=== PATIENT | male | born 1970 | race Caucasian/White ===

== ENCOUNTER → 2020-01-25 08:49 | Outpatient (CLI) | payer OTHER, SELFPAY ==
--- NOTE | 2020-01-25 | DI.MRI.S_ITS ---
PROCEDURE: MR HEAD/BRAIN WO CON INDICATIONS: Migraine without aura, intractable, without status TECHNIQUE: Noncontrast axial T1 spin echo, axial T2 fast spin echo, sagittal and axial FLAIR, coronal T2 fast spin echo, axial gradient echo, axial diffusion and ADC through the brain. COMPARISON: None. FINDINGS: Image quality: Excellent. CSF Spaces: Basal cisterns are patent. No extra-axial fluid collections. Ventricles are normal in size and shape. Brain: No intracranial masses or hemorrhage. Gates/white matter interface is normal. Brainstem appears normal. Diffusion-weighted images demonstrate no acute ischemic insult. No chronic ischemic insults. Normal intravascular flow voids are present. Skull and face: Calvarium has normal marrow signal. Orbits appear normal. Sinuses: Sinuses and mastoids are clear. IMPRESSION: Negative brain MRI. No evidence of acute stroke, hemorrhage, or mass. Normal appearance of brain parenchyma. Dictated by: Humberto Johnston M.D. on 01/26/2020 at 13:22 Approved by: Humberto Johnston M.D. on 01/26/2020 at 13:24
== END ==
PROVIDERS: PCP Student in an Organized Health Care Education/Training Program; Referring Provider Psychiatry & Neurology Neurology; Visit Provider Psychiatry & Neurology Neurology
DX: G43.019 Migraine without aura, intractable, without status migrainosus (principal)
CPT/HCPCS: 70551

== ENCOUNTER → 2021-09-17 14:22 | Outpatient (CLI) | payer BC, SELFPAY ==
[2021-09-20 12:36] LABS: Fecal Immunochemical Test Negative (Negative)
== END ==
PROVIDERS: PCP Student in an Organized Health Care Education/Training Program; Referring Provider Student in an Organized Health Care Education/Training Program; Visit Provider Student in an Organized Health Care Education/Training Program
DX: Z12.11 Encounter for screening for malignant neoplasm of colon (principal)
CPT/HCPCS: 82274

== ENCOUNTER 2022-04-29 16:52 | Emergency (ER) | payer BC, SELFPAY ==
[2022-04-29] VITALS (8 sets, daily range): BP systolic 124–157; BP diastolic 82–94; PULSE 71–87; RESP 17; TEMP 36.6; O2SAT 97–100; BMI 23.6
--- NOTE | 2022-04-29 18:55 | ED_ITS ---
HPI - Headache <Diego Engel PA-C - Last Filed: 04/29/22 20:27> General Chief Complaint: Headache Stated Complaint: Headache since 6am Time Seen by Provider: 04/29/22 18:40 Mode of arrival: Ambulatory History of Present Illness HPI Narrative: Patient is a 51-year-old male who presents emergency room today with complaint migraine headache that started this morning about 6:00 a.m.. States he woke up this morning noted that he had a migraine headache. States he took his nortriptyline that he usually takes 20 of a migraine headache and it did relieve it. Also states that he retook nortriptyline around 2:00 p.m. and also did not relieve the headache. Also also states he took tramadol at 6:00 a.m. and 2:00 p.m. do not resolve the headache. States he had about vomiting about 230 and took Zofran to help the vomiting but still had the headache. Describes the headache as a pressure behind head that goes from the back of the head to the front of the head feels is worse with movement and better with not moving. States she has seen neurologist Dr. Sosa for his migraines but not contact him today. She has had migraines before but just not this bad. Also has arthritis and took Celebrex for that this morning. Denies associated neck pain. Related Data Home Medications Medication Instructions Recorded Confirmed celecoxib 200 mg capsule (Celebrex) 200 mg PO [facility] #30 caps 02/26/16 04/29/22 tramadol 50 mg tablet 50 mg PO Q6HP PRN Headache ##0 10/18/16 04/29/22 adalimumab 40 mg/0.8 mL 40 mg SUBCUT Q14D 08/13/18 04/29/22 subcutaneous syringe kit (Humira) amitriptyline 10 mg tablet 10 mg PO BEDTIME 02/28/22 04/29/22 azathioprine 100 mg tablet 100 mg PO DAILY 02/28/22 04/29/22 Previous Rx's Medication Instructions Recorded sildenafil (pulm.hypertension) 20 20 - 100 mg PO BEDTIME PRN sexual 07/16/20 mg tablet activity #30 tabs naratriptan 2.5 mg tablet See Rx Instructions PO .COMPLEX 02/04/22 #18 tabs Allergies Allergy/AdvReac Type Severity Reaction Status Date / Time No Known Drug Allergies Allergy Verified 04/29/22 18:57 Review of Systems <Diego Engel PA-C - Last Filed: 04/29/22 20:27> Review of Systems Narrative: R.O.S.: General: No fever, chills or fatigue. Cardiovascular: No chest pain or palpitations Respiratory: No S.O.B. HEENT: No congestion, ear pain, rhinorrhea, sore throat or tinnitus Gastrointestinal: No nausea or vomiting : No urinary concerns Skin: No rash or associated abnormalities Musculoskeletal: No pain in muscles or joints, no limitation of range of motion, no paresthesia or numbness. ?? Neurological: Awake, alert and in and in moderate distress with headache. Denies neck pain Patient History <Diego Engel PA-C - Last Filed: 04/29/22 20:27> Medical History (Updated 04/29/22 @ 21:00 by Jovanni Frances DO) Psoriasis Surgical History (Updated 11/28/17 @ 05:55 by Conversion Provider) Status post laparoscopic cholecystectomy (10/26/10) Family History Grandfather No problems noted. Grandmother No problems noted. Grandfather No problems noted. Social History Smoking Status: Former smoker Smoking Status: Former smoker alcohol intake frequency: other Substance Use Type: does not use Exam <Diego Engel PA-C - Last Filed: 04/29/22 20:27> Narrative Exam Narrative: Physical Exam: ? General: Awake alert but lying in bed with his eyes closed. The patient is an acute moderate distress.. ? Head: Normocephalic, no lesions. Chest: Lungs CTAB, no rales, rhonchi or wheezes. ?? Heart: RRR, no murmurs, rubs or gallops. Eyes: PERRLA, EOM's full, conjunctivae clear. ? Neuro: Physiological, no localizing findings, CN3-12 intact. ?? Extremities: Warm, well perfused, FROM, no deformities, no edema. ?? Skin: Normal, no rashes, no lesions noted. ?? PSYCHIATRIC: The mood is good, no blunted affect. Speech is clear. Thought process is linear, thought content is appropriate. The voice is without significant inflection. Gastrointestinal: Soft; NT; ND; Pos BS with Neg. rebound tenderness. No scars or major deformities noted on Visual Inspection. Initial Vital Signs Initial Vital Signs: Vital Signs Temperature 98 F 04/29/22 16:57 Pulse Rate 75 04/29/22 16:57 Respiratory Rate 17 04/29/22 16:57 Blood Pressure 135/94 H 04/29/22 16:57 Pulse Oximetry 99 04/29/22 16:57 Oxygen Delivery Method 04/29/22 16:57 <Jovanni Frances DO - Last Filed: 04/30/22 02:04> Initial Vital Signs Initial Vital Signs: Vital Signs Temperature 98 F 04/29/22 16:57 Pulse Rate 75 04/29/22 16:57 Respiratory Rate 17 04/29/22 16:57 Blood Pressure 135/94 H 04/29/22 16:57 Pulse Oximetry 99 04/29/22 16:57 Oxygen Delivery Method 04/29/22 16:57 Course <Diego Engel PA-C - Last Filed: 04/29/22 20:27> Orders Ordered: Discontinued Medications Diphenhydramine HCl (Diphenhydramine 50 Mg/Ml Vial) 25 mg IV NOW ONE Stop: 04/29/22 19:08 Last Admin: 04/29/22 19:15 Dose: 25 mg Documented By: KENYON Haloperidol (Haloperidol 5 Mg/Ml Vial) 2 mg IV Q1H PRN PRN Reason: Agitation Last Admin: 04/29/22 20:17 Dose: 2 mg Documented By: KENYON Ketorolac Tromethamine (Ketorolac 30 Mg/Ml Vial) 30 mg IM NOW ONE Stop: 04/29/22 18:56 Last Admin: 04/29/22 19:26 Dose: Not Given Documented By: KENYON Ketorolac Tromethamine (Ketorolac 30 Mg/Ml Vial) 30 mg IV NOW ONE Stop: 04/29/22 18:59 Last Admin: 04/29/22 18:59 Dose: 30 mg Documented By: MATEO Metoclopramide HCl (Metoclopramide 10 Mg/2 Ml Inj) 10 mg IV NOW ONE Stop: 04/29/22 19:09 Last Admin: 04/29/22 19:15 Dose: 10 mg Documented By: KENYON Vital Signs Vital signs: Vital Signs - 8 hr 04/29/22 19:03 04/29/22 19:04 04/29/22 19:04 Pulse Rate 78 74 Blood Pressure 149/94 H Pulse Oximetry 100 100 04/29/22 19:20 04/29/22 19:20 04/29/22 19:30 Pulse Rate 72 Blood Pressure 157/92 H 151/92 H Pulse Oximetry 99 04/29/22 19:30 04/29/22 20:00 04/29/22 20:00 Pulse Rate 77 71 Blood Pressure 124/85 Pulse Oximetry 100 99 04/29/22 20:30 04/29/22 20:30 04/29/22 21:00 Pulse Rate 87 Blood Pressure 130/84 148/82 H Pulse Oximetry 100 04/29/22 21:00 Pulse Rate 84 Blood Pressure Pulse Oximetry 97 <Jovanni Frances DO - Last Filed: 04/30/22 02:04> Orders Ordered: Discontinued Medications Diphenhydramine HCl (Diphenhydramine 50 Mg/Ml Vial) 25 mg IV NOW ONE Stop: 04/29/22 19:08 Last Admin: 04/29/22 19:15 Dose: 25 mg Documented By: KENYON Haloperidol (Haloperidol 5 Mg/Ml Vial) 2 mg IV Q1H PRN PRN Reason: Agitation Last Admin: 04/29/22 20:17 Dose: 2 mg Documented By: KENYON Ketorolac Tromethamine (Ketorolac 30 Mg/Ml Vial) 30 mg IM NOW ONE Stop: 04/29/22 18:56 Last Admin: 04/29/22 19:26 Dose: Not Given Documented By: KENYON Ketorolac Tromethamine (Ketorolac 30 Mg/Ml Vial) 30 mg IV NOW ONE Stop: 04/29/22 18:59 Last Admin: 04/29/22 18:59 Dose: 30 mg Documented By: MATEO Metoclopramide HCl (Metoclopramide 10 Mg/2 Ml Inj) 10 mg IV NOW ONE Stop: 04/29/22 19:09 Last Admin: 04/29/22 19:15 Dose: 10 mg Documented By: KENYON Vital Signs Vital signs: Vital Signs - 8 hr 04/29/22 19:03 04/29/22 19:04 04/29/22 19:04 Pulse Rate 78 74 Blood Pressure 149/94 H Pulse Oximetry 100 100 04/29/22 19:20 04/29/22 19:20 04/29/22 19:30 Pulse Rate 72 Blood Pressure 157/92 H 151/92 H Pulse Oximetry 99 04/29/22 19:30 04/29/22 20:00 04/29/22 20:00 Pulse Rate 77 71 Blood Pressure 124/85 Pulse Oximetry 100 99 04/29/22 20:30 04/29/22 20:30 04/29/22 21:00 Pulse Rate 87 Blood Pressure 130/84 148/82 H Pulse Oximetry 100 04/29/22 21:00 Pulse Rate 84 Blood Pressure Pulse Oximetry 97 [facility] - Headache <Diego Engel PA-C - Last Filed: 04/29/22 20:27> [facility] Narrative Medical decision making narrative: Patient is a 51-year-old male presents to the emergency room today with complaint of migraine headache that started this morning. Is not new to the patient as he has had migraines before just not as bad. Denies any neck pain or meningeal signs. Has taken nortriptyline and tramadol do not believe headaches. Toradol Benadryl and Reglan initially ordered. About 45 minute patient states that the migraine is still the same. And then ordered 2.0 mg of Haldol. Care of this patient transferred to . <Jovanni Frances DO - Last Filed: 04/30/22 02:04> [facility] Narrative Medical decision making narrative: Patient is a 51-year-old male presents to the emergency room today with complaint of migraine headache that started this morning. Is not new to the patient as he has had migraines before just not as bad. Denies any neck pain or meningeal signs. Has taken nortriptyline and tramadol do not believe headaches. Toradol Benadryl and Reglan initially ordered. About 45 minute patient states that the migraine is still the same. And then ordered 2.0 mg of Haldol. Care of this patient transferred to . Received turned over. Review patient's history and physical exam. Performed my own independent evaluation. Patient states that his headache is much improved after the above-stated therapies. I do have low suspicion for intracranial hemorrhage given his presentation in his exam. Patient states he feels comfortable going home. He was given return precautions. He expressed understanding and agreement. Discharge Plan Departure Patient Disposition: Home Clinical Impression: Migraine Instructions: DI for Migraine Activity Restrictions/Additional Instructions: Can take all of your medications as directed. Contact your primary doctor for a follow-up. Return to the emergency department for any worsening symptoms. Prescriptions: No Action adalimumab [Humira] 40 mg/0.8 mL syringe kit 40 mg SUBCUT Q14D celecoxib [Celebrex] 200 MG capsule 200 mg PO [facility] Qty: 30 tramadol 50 MG tablet 50 mg PO Q6HP PRN (Reason: Headache) Qty: 0 naratriptan 2.5 mg tablet See Rx Instructions PO .COMPLEX Qty: 18 5RF Rx Instructions: take 1 tab at onset of headache; if no relief may repeat 1 tab in 4hr; max = 2 tabs/24 hrs PO amitriptyline 10 mg tablet 10 mg PO BEDTIME azathioprine 100 mg tablet 100 mg PO DAILY sildenafil (pulm.hypertension) 20 mg tablet 20 - 100 mg PO BEDTIME PRN (Reason: sexual activity) Qty: 30 11RF Referrals: Riley Isaac MD [Primary Care Provider] - Visit Report Forms: Patient Portal/API
[2022-04-29] MEDS: KETOROLAC 30 MG/ML VIAL IV (18:59)
[2022-04-29] MEDS: diphenhydrAMINE 50 MG/ML VIAL 25 MG IV (19:15)
[2022-04-29] MEDS: METOCLOPRAMIDE 10 MG/2 ML INJ IV (19:15)
[2022-04-29] MEDS: HALOPERIDOL 5 MG/ML VIAL 2 MG IV (20:17)
== END 2022-04-29 21:06 | disposition home or self-care (01) ==
PROVIDERS: Emergency Provider Physician Assistant; Family Provider Student in an Organized Health Care Education/Training Program; PCP Student in an Organized Health Care Education/Training Program
DX: G43.909 Migraine, unspecified, not intractable, without status migrainosus (principal); R11.2 Nausea with vomiting, unspecified
CPT/HCPCS: 36415; 96374; 96375; 99284; J1200; J1630; J1885; J2765

== ENCOUNTER 2022-08-10 13:45 | Outpatient (RCR) | payer BC, SELFPAY ==
--- NOTE | 2022-04-11 17:57 | PT.OIE ---
Current Diagnoses Pain in left shoulder (04/11/22) Stiffness of left shoulder, not elsewhere classified (04/11/22) Strain of muscle(s) and tendon(s) of the rotator cuff of left shoulder, subsequent encounter (04/11/22) Past Medical History (Last Updated 10/18/18 @ 21:27 by Sugey Lua) Psoriasis Past Surgical History Status post laparoscopic cholecystectomy (10/26/10) Visit Care Team Role Provider Type Riley Isaac MD Attending Provider Physician Family Provider Primary Care Provider Referring Provider Specialty: Internal Medicine Address: [address] [place] [address], [address], [facility] Email: [email or web address] Physical Therapy Initial Evaluation PT-OP-A Visit Information Start: 04/11/22 15:53 Freq: Status: Active Protocol: Document 04/11/22 15:15 DCW (Rec: 04/11/22 15:58 DCW [id number]) Out-Patient Physical Therapy Visit Information Visit Information Visit Type Initial Evaluation Visit Start Time 15:15 Visit Stop Time 15:50 Total Visit Minutes 35 Visit Number 1 Number of 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 Pt notes an insidious onset, it just started aching and hurting. Notes the thing that bothers it the most is reaching into the cupboard for dishes. Anything overhead typically irritates his shoulder. It is best if he just rests it. PT-OP-C Subjective Start: 04/11/22 15:53 Freq: Status: Active Protocol: Document 04/11/22 15:15 DCW (Rec: 04/11/22 15:58 DCW [id number]) OP-PT Subjective Patient Comments Patient Comments The only thing that helps it really is keeping my hand in my pocket. Just not using it. Patient Questionnaires Quick Dash- Upper Extremity Quick Dash UE Score 65.91% Quick Dash UE Impairment 60 to 79% Impaired (Score 60- 79) OP-PT Pain Assessment Pain Assessment Grid Paper Pain Assessment Grid Completed Yes Location Left Lateral Shoulder Intensity 4 Scale Used Numeric (0 - 10) Pain Aggravating Factors Activity Other Pain Aggravating Factors Reaching into cupboard for dishes PT-OP-E Functional Tests Start: 04/11/22 15:53 Freq: Status: Active Protocol: Document 04/11/22 15:15 DCW (Rec: 04/11/22 17:44 DCW [id number]) Functional Tests Apley's Scratch Test Action 1- Left Anterior opposite shoulder Action 1- Right Posterior opposite shoulder Action 2- Left C5 Action 2- Right T5 Action 3- Left L PSIS Action 3- Right T3 PT-OP-F Manual Assessment Start: 04/11/22 15:53 Freq: Status: Active Protocol: Document 04/11/22 15:15 DCW (Rec: 04/11/22 17:44 DCW [id number]) Manual Assessments Soft Tissue Assessment Soft Tissue Mobility Assessment Tenderness with palpation 3/4: wincing and withdraw aldong left supraspinatus, infraspinatus, and subscapularis. Appears to have a void in soft tissue, potentially due to muscle atrophy, just posteriomedially to location of L posterior deltoid PT-OP-K Range of Motion Start: 04/11/22 15:53 Freq: Status: Active Protocol: Document 04/11/22 15:15 DCW (Rec: 04/11/22 17:44 DCW [id number]) Shoulder Goniometric Range of Motion Shoulder Left Passive Shoulder ROM WFL No Testing Position Supine Flexion 110 Abduction 45 Comments Empty end feel, stopped when pt reported pain Left Active Shoulder ROM WFL No Testing Position Sitting Flexion 112 Abduction 90 External Rotation at 0 degrees Abduction 65 Shoulder ROM Limitations Shoulder ROM Limitations Soft Tissue Tightness,Muscle Weakness,Pain PT-OP-L Special Tests Start: 04/11/22 15:53 Freq: Status: Active Protocol: Document 04/11/22 15:15 DCW (Rec: 04/11/22 17:44 DCW [id number]) Special Tests Shoulder Special Tests Painful Arc Test Results Positive L Passive ER Rotator Cuff Test Results Positive L Lift-Off Rotator Cuff Test Results Unable to position L arm Foster Min Impingement Test Results Positive L Grind Labrum Test Results Negative Drop Arm Rotator Cuff Test Results Positive L Belly Press Test Results Negative Apprehension Test Test Results Positive L PT-OP-M Strength Start: 04/11/22 15:53 Freq: Status: Active Protocol: Document 04/11/22 15:15 DCW (Rec: 04/11/22 17:44 DCW [id number]) Shoulder Strength Shoulder Manual Muscle Testing Left Flexion 3- Fair- Abduction (C5) 3- Fair- External Rotation 4 Good Internal Rotation 3 Fair Comments Pain with resisted flexion, abduction, and ER PT-OP-Q Treatments Start: 04/11/22 15:53 Freq: Status: Active Protocol: Document 04/11/22 15:15 DCW (Rec: 04/11/22 16:00 DCW [id number]) Therapeutic Exercises Supine Exercises Serratus punch Supine Exercise Name Serratus punch Side bilateral Standing Exercises Extension Standing Exercise Name Shoulder extension Side bilateral Resistance Lv 2 Internal rotation Standing Exercise Name IR Side left Resistance Lv 2 External rotation Standing Exercise Name ER Side left Resistance Lv 2 Rows Standing Exercise Name Rows Side bilateral Resistance Lv 2 PT-OP-T Assessment and Plan Start: 04/11/22 15:53 Freq: Status: Active Protocol: Document 04/11/22 15:15 DCW (Rec: 04/11/22 17:56 DCW [id number]) Physical Therapy Assessment Rehab Potential Rehabilitation Potential Good Evaluation Complexity Number of Personal Factors/Comorbidities 1-2 Number of Body Systems Impaired 3 Clinical Presentation at Evaluation Unstable Impairments Impairments Functional Activities, Functional Mobility,Pain,ROM, Soft Tissue Mobility,Strength, Tone Goals Two Impairment Significantly limited L shoulder ROM Nursing Home 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 flexion and abduction to improve ability to take out and put away dishes overhead from his kitchen cupboard. LTG Duration 06/11/22 One Impairment Pt foes not have an appropriate home exercise program Short Term Goal (STG) Pt to be independent and compliant with an appropriate HEP STG Duration 05/11/22 Assessment Summary Assessment Pt presents with signs and symptoms consistent with referring diagnosis of left rotator cuff strain. Getting more specific is difficult at this time, as pt's special tests were largely all positive, making differential diagnosis between supraspinatus, infraspinatus, and subscap fairly difficult. Due to pt's noted location of most severe pain, which was along proximal posteriolateral left humerus, best estimation is supraspinatus, however multiple muscles may be affected. Pt also appears to have a void in his soft tissue in this general area, which may be a sign of muscle atrophy. ROM and strength significantly limited secondary to pain, PROM limited by empty end-feel in all planes. Pt may benefit from skilled therapy focusing on strengthening and ROM exercises for left shoulder to improve ROM and shoulder stability. If pt fails to progress as expected, may benefit from advanced imaging. Physical Therapy Plan Frequency and Duration Frequency of Treatment 2x/Week Duration of Treatment Two months Plan of Care Start Date 04/11/22 Plan of Care End Date 06/11/22 Therapeutic Interventions Therapeutic Interventions Aquatic Therapy,Home Exercise Program,Joint Mobilizations, Manual Therapy,Patient/ Caregiver Education,Self-Care/ Home Management,Soft Tissue Mobilization,Therapeutic Activities,Therapeutic Exercises Modalities Cold Pack/Ice Massage,Electric Stimulation,Hot Packs, Ultrasound Next Visit Focus/Plan Next Note Type Treatment Note Next Visit Plan Jacob strengthening, ROM, stretching
--- NOTE | 2022-04-11 17:58 | PT.OPPOC ---
Physical, Occupational & Speech Therapy At [facility] Current Diagnoses Pain in left shoulder (04/11/22) Stiffness of left shoulder, not elsewhere classified (04/11/22) Strain of muscle(s) and tendon(s) of the rotator cuff of left shoulder, subsequent encounter (04/11/22) Visit Care Team Role Provider Type Riley Isaac MD Attending Provider Physician Family Provider Primary Care Provider Referring Provider Specialty: Internal Medicine Address: [address] [place] [address], [address], [facility] Email: [email or web address] Plan Of Care PT-OP-T Assessment and Plan Start: 04/11/22 15:53 Freq: Status: Active Protocol: Document 04/11/22 15:15 DCW (Rec: 04/11/22 17:56 DCW [id number]) Physical Therapy Assessment Rehab Potential Rehabilitation Potential Good Evaluation Complexity Number of Personal Factors/Comorbidities 1-2 Number of Body Systems Impaired 3 Clinical Presentation at Evaluation Unstable Impairments Impairments Functional Activities, Functional Mobility,Pain,ROM, Soft Tissue Mobility,Strength, Tone Goals Two Impairment Significantly limited L shoulder ROM 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 flexion and abduction to improve ability to take out and put away dishes overhead from his kitchen cupboard. LTG Duration 06/11/22 One Impairment Pt foes not have an appropriate home exercise program Short Term Goal (STG) Pt to be independent and compliant with an appropriate HEP STG Duration 05/11/22 Assessment Summary Assessment Pt presents with signs and symptoms consistent with referring diagnosis of left rotator cuff strain. Getting more specific is difficult at this time, as pt's special tests were largely all positive, making differential diagnosis between supraspinatus, infraspinatus, and subscap fairly difficult. Due to pt's noted location of most severe pain, which was along proximal posteriolateral left humerus, best estimation is supraspinatus, however multiple muscles may be affected. Pt also appears to have a void in his soft tissue in this general area, which may be a sign of muscle atrophy. ROM and strength significantly limited secondary to pain, PROM limited by empty end-feel in all planes. Pt may benefit from skilled therapy focusing on strengthening and ROM exercises for left shoulder to improve ROM and shoulder stability. If pt fails to progress as expected, may benefit from advanced imaging. Physical Therapy Plan Frequency and Duration Frequency of Treatment 2x/Week Duration of Treatment Two months Plan of Care Start Date 04/11/22 Plan of Care End Date 06/11/22 Therapeutic Interventions Therapeutic Interventions Aquatic Therapy,Home Exercise Program,Joint Mobilizations, Manual Therapy,Patient/ Caregiver Education,Self-Care/ Home Management,Soft Tissue Mobilization,Therapeutic Activities,Therapeutic Exercises Modalities Cold Pack/Ice Massage,Electric Stimulation,Hot Packs, Ultrasound Next Visit Focus/Plan Next Note Type Treatment Note Next Visit Plan Sulder strengthening, ROM, stretching Plan of Care Dates Plan of Care Start Date 04/11/22 Plan of Care End Date 06/11/22 Electronically Signed by: Huy Caal, PT 04/11/22 0501 If you are in agreement with this Plan of Care, please return a signed and dated copy. I have reviewed this Plan of Care and certify that the skilled therapy services above are required to meet the patient?s needs. Physician Signature Date Printed Name and Credentials Clinical Instructor Signature Printed Name and Credentials
--- NOTE | 2022-04-13 16:43 | PT.OTN ---
Current Diagnoses Pain in left shoulder (04/13/22) Stiffness of left shoulder, not elsewhere classified (04/13/22) Strain of muscle(s) and tendon(s) of the rotator cuff of left shoulder, subsequent encounter (04/13/22) Physical Therapy Treatment Note PT-OP-A Visit Information Start: 04/11/22 15:53 Freq: Status: Active Protocol: Document 04/13/22 16:00 DCW (Rec: 04/13/22 16:43 DCW [id number]) Out-Patient Physical Therapy Visit Information Visit Information Visit Type Treatment Note Visit Start Time 16:00 Visit Stop Time 16:45 Total Visit Minutes 45 Visit Number 2 Number of CONTROL OFFICER MANAGER Visits 0 Evaluation Information Evaluation Date 04/11/22 PT-OP-B Current Condition Start: 04/11/22 15:53 Freq: Status: Active Protocol: Document 04/11/22 15:15 DCW (Rec: 04/11/22 17:44 DCW [id number]) Current Condition History of Current Condition Onset Date 2 month history Current Complaints Left shoulder pain and limited ROM History of Current Condition Pt is a 51 year old male presenting to skilled therapy due to a two month history of left shoulder pain. Pt notes an insidious onset, it just started aching and hurting. Notes the thing that bothers it the most is reaching into the cupboard for dishes. Anything overhead typically irritates his shoulder. It is best if he just rests it. PT-OP-C Subjective Start: 04/11/22 15:53 Freq: Status: Active Protocol: Document 04/13/22 16:00 DCW (Rec: 04/13/22 16:43 DCW [id number]) OP-PT Subjective Patient Comments Patient Comments Pt notes he had a migraine issue earlier today, but is doing somewhat better. PT-OP-E Functional Tests Start: 04/11/22 15:53 Freq: Status: Active Protocol: Document 04/11/22 15:15 DCW (Rec: 04/11/22 17:44 DCW [id number]) Functional Tests Apley's Scratch Test Action 1- Left Anterior opposite shoulder Action 1- Right Posterior opposite shoulder Action 2- Left C5 Action 2- Right T5 Action 3- Left L PSIS Action 3- Right T3 PT-OP-F Manual Assessment Start: 04/11/22 15:53 Freq: Status: Active Protocol: Document 04/11/22 15:15 DCW (Rec: 04/11/22 17:44 DCW [id number]) Manual Assessments Soft Tissue Assessment Soft Tissue Mobility Assessment Tenderness with palpation 3/4: wincing and withdraw aldong left supraspinatus, infraspinatus, and subscapularis. Appears to have a void in soft tissue, potentially due to muscle atrophy, just posteriomedially to location of L posterior deltoid PT-OP-K Range of Motion Start: 04/11/22 15:53 Freq: Status: Active Protocol: Document 04/11/22 15:15 DCW (Rec: 04/11/22 17:44 DCW [id number]) Shoulder Goniometric Range of Motion Shoulder Left Passive Shoulder ROM WFL No Testing Position Supine Flexion 110 Abduction 45 Comments Empty end feel, stopped when pt reported pain Left Active Shoulder ROM WFL No Testing Position Sitting Flexion 112 Abduction 90 External Rotation at 0 degrees Abduction 65 Shoulder ROM Limitations Shoulder ROM Limitations Soft Tissue Tightness,Muscle Weakness,Pain PT-OP-L Special Tests Start: 04/11/22 15:53 Freq: Status: Active Protocol: Document 04/11/22 15:15 DCW (Rec: 04/11/22 17:44 DCW [id number]) Special Tests Shoulder Special Tests Painful Arc Test Results Positive L Passive ER Rotator Cuff Test Results Positive L Lift-Off Rotator Cuff Test Results Unable to position L arm Foster Min Impingement Test Results Positive L Grind Labrum Test Results Negative Drop Arm Rotator Cuff Test Results Positive L Belly Press Test Results Negative Apprehension Test Test Results Positive L PT-OP-M Strength Start: 04/11/22 15:53 Freq: Status: Active Protocol: Document 04/11/22 15:15 DCW (Rec: 04/11/22 17:44 DCW [id number]) Shoulder Strength Shoulder Manual Muscle Testing Left Flexion 3- Fair- Abduction (C5) 3- Fair- External Rotation 4 Good Internal Rotation 3 Fair Comments Pain with resisted flexion, abduction, and ER PT-OP-Q Treatments Start: 04/11/22 15:53 Freq: Status: Active Protocol: Document 04/13/22 16:00 DCW (Rec: 04/13/22 16:43 DCW [id number]) Cardio Equipment Upper Body Ergometer (UBE) Duration (Minutes) 4 Seat Position 13 Height 2.5 Therapeutic Exercises Supine Exercises PROM Supine Exercise Name Shoulder flexion, ER /c PVC Side bilateral Sitting Exercises UT stretch Sitting Exercise Name Upper trap stretch Side left Reps/Minutes 30 PROM Sitting Exercise Name Lillie: GH flexion Side left Standing Exercises Wall walk Standing Exercise Name Finger walk up wall with end- range stretch Side left Manual Therapy Treatment Soft Tissue Mobilization R/C Body Location L R/C, main focus on supra/ infraspinatus Mobilization Type Sustained Pressure,Trigger Point Release Intensity/Depth Moderate Upper Trap Body Location L upper trap Mobilization Type Sustained Pressure,Trigger Point Release Intensity/Depth Superficial PT-OP-T Assessment and Plan Start: 04/11/22 15:53 Freq: Status: Active Protocol: Document 04/13/22 16:00 DCW (Rec: 04/13/22 16:43 DCW [id number]) Physical Therapy Assessment Impairments Impairments Functional Activities, Functional Mobility,Pain,ROM, Soft Tissue Mobility,Strength, Tone Goals Two Impairment Significantly limited L shoulder ROM Manager Spring 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 flexion and abduction to improve ability to take out and put away dishes overhead from his kitchen cupboard. LTG Duration 06/11/22 One Impairment Pt foes not have an appropriate home exercise program Short Term Goal (STG) Pt to be independent and compliant with an appropriate HEP STG Duration 05/11/22 Assessment Summary Assessment Pt continues to be fairly flared up/tender with all STM and with L shoulder movement in any plane. Pt agreeable to continued PROM at home, as well as addition of UT stretch to help reduce tone. Physical Therapy Plan Frequency and Duration Frequency of Treatment 2x/Week Duration of Treatment Two months Plan of Care Start Date 04/11/22 Plan of Care End Date 06/11/22 Therapeutic Interventions Therapeutic Interventions Aquatic Therapy,Home Exercise Program,Joint Mobilizations, Manual Therapy,Patient/ Caregiver Education,Self-Care/ Home Management,Soft Tissue Mobilization,Therapeutic Activities,Therapeutic Exercises Modalities Cold Pack/Ice Massage,Electric Stimulation,Hot Packs, Ultrasound Next Visit Focus/Plan Next Note Type Treatment Note Next Visit Plan Jacob strengthening, ROM, stretching
--- NOTE | 2022-04-18 16:46 | PT.OTN ---
Current Diagnoses Pain in left shoulder (04/18/22) Stiffness of left shoulder, not elsewhere classified (04/18/22) Strain of muscle(s) and tendon(s) of the rotator cuff of left shoulder, subsequent encounter (04/18/22) Physical Therapy Treatment Note PT-OP-A Visit Information Start: 04/11/22 15:53 Freq: Status: Active Protocol: Document 04/18/22 16:00 DCW (Rec: 04/18/22 16:46 DCW [id number]) Out-Patient Physical Therapy Visit Information Visit Information Visit Type Treatment Note Visit Start Time 16:00 Visit Stop Time 16:45 Total Visit Minutes 45 Visit Number 3 Number of REGIONAL MERCHANDISING MANAGER Visits 0 Evaluation Information Evaluation Date 04/11/22 PT-OP-B Current Condition Start: 04/11/22 15:53 Freq: Status: Active Protocol: Document 04/11/22 15:15 DCW (Rec: 04/11/22 17:44 DCW [id number]) Current Condition History of Current Condition Onset Date 2 month history Current Complaints Left shoulder pain and limited ROM History of Current Condition Pt is a 51 year old male presenting to skilled therapy due to a two month history of left shoulder pain. Pt notes an insidious onset, it just started aching and hurting. Notes the thing that bothers it the most is reaching into the cupboard for dishes. Anything overhead typically irritates his shoulder. It is best if he just rests it. PT-OP-C Subjective Start: 04/11/22 15:53 Freq: Status: Active Protocol: Document 04/18/22 16:00 DCW (Rec: 04/18/22 16:46 DCW [id number]) OP-PT Subjective Patient Comments Patient Comments Pt reports his shoulder is alright, tried to take it pretty easy over the weekend. PT-OP-E Functional Tests Start: 04/11/22 15:53 Freq: Status: Active Protocol: Document 04/11/22 15:15 DCW (Rec: 04/11/22 17:44 DCW [id number]) Functional Tests Apley's Scratch Test Action 1- Left Anterior opposite shoulder Action 1- Right Posterior opposite shoulder Action 2- Left C5 Action 2- Right T5 Action 3- Left L PSIS Action 3- Right T3 PT-OP-F Manual Assessment Start: 04/11/22 15:53 Freq: Status: Active Protocol: Document 04/11/22 15:15 DCW (Rec: 04/11/22 17:44 DCW [id number]) Manual Assessments Soft Tissue Assessment Soft Tissue Mobility Assessment Tenderness with palpation 3/4: wincing and withdraw aldong left supraspinatus, infraspinatus, and subscapularis. Appears to have a void in soft tissue, potentially due to muscle atrophy, just posteriomedially to location of L posterior deltoid PT-OP-K Range of Motion Start: 04/11/22 15:53 Freq: Status: Active Protocol: Document 04/11/22 15:15 DCW (Rec: 04/11/22 17:44 DCW [id number]) Shoulder Goniometric Range of Motion Shoulder Left Passive Shoulder ROM WFL No Testing Position Supine Flexion 110 Abduction 45 Comments Empty end feel, stopped when pt reported pain Left Active Shoulder ROM WFL No Testing Position Sitting Flexion 112 Abduction 90 External Rotation at 0 degrees Abduction 65 Shoulder ROM Limitations Shoulder ROM Limitations Soft Tissue Tightness,Muscle Weakness,Pain PT-OP-L Special Tests Start: 04/11/22 15:53 Freq: Status: Active Protocol: Document 04/11/22 15:15 DCW (Rec: 04/11/22 17:44 DCW [id number]) Special Tests Shoulder Special Tests Painful Arc Test Results Positive L Passive ER Rotator Cuff Test Results Positive L Lift-Off Rotator Cuff Test Results Unable to position L arm Foster Min Impingement Test Results Positive L Grind Labrum Test Results Negative Drop Arm Rotator Cuff Test Results Positive L Belly Press Test Results Negative Apprehension Test Test Results Positive L PT-OP-M Strength Start: 04/11/22 15:53 Freq: Status: Active Protocol: Document 04/11/22 15:15 DCW (Rec: 04/11/22 17:44 DCW [id number]) Shoulder Strength Shoulder Manual Muscle Testing Left Flexion 3- Fair- Abduction (C5) 3- Fair- External Rotation 4 Good Internal Rotation 3 Fair Comments Pain with resisted flexion, abduction, and ER PT-OP-Q Treatments Start: 04/11/22 15:53 Freq: Status: Active Protocol: Document 04/18/22 16:00 DCW (Rec: 04/18/22 16:46 DCW [id number]) Cardio Equipment Upper Body Ergometer (UBE) Duration (Minutes) 4 Seat Position 13 Height 2.5 Therapeutic Exercises Supine Exercises PROM Supine Exercise Name Shoulder flexion, ER /c PVC Side bilateral Sitting Exercises PROM Sitting Exercise Name Lillie: GH flexion Side left Standing Exercises Resisted side-stepping Standing Exercise Name Resisted UE side-stepping Resistance Yellow PROM Standing Exercise Name Shoulder PROM - Abduction Comments PVC Flexion Standing Exercise Name Shoulder flexion Side bilateral Resistance 2# Comments pain-free Abduction Standing Exercise Name Shoulder abduction Side bilateral Resistance 2# Comments pain-free Manual Therapy Treatment Soft Tissue Mobilization R/C Body Location L R/C, main focus on supra/ infraspinatus Mobilization Type Sustained Pressure,Trigger Point Release Intensity/Depth Moderate Upper Trap Body Location L upper trap Mobilization Type Sustained Pressure,Trigger Point Release Intensity/Depth Superficial PT-OP-T Assessment and Plan Start: 04/11/22 15:53 Freq: Status: Active Protocol: Document 04/18/22 16:00 DCW (Rec: 04/18/22 16:46 DCW [id number]) Physical Therapy Assessment Impairments Impairments Functional Activities, Functional Mobility,Pain,ROM, Soft Tissue Mobility,Strength, Tone Goals Two Impairment Significantly limited L shoulder ROM Custodial 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 flexion and abduction to improve ability to take out and put away dishes overhead from his kitchen cupboard. LTG Duration 06/11/22 One Impairment Pt foes not have an appropriate home exercise program Short Term Goal (STG) Pt to be independent and compliant with an appropriate HEP STG Duration 05/11/22 Assessment Summary Assessment Pt making some small improvements in PROM, but still experiencing overall pain with general movements. Physical Therapy Plan Frequency and Duration Frequency of Treatment 2x/Week Duration of Treatment Two months Plan of Care Start Date 04/11/22 Plan of Care End Date 06/11/22 Therapeutic Interventions Therapeutic Interventions Aquatic Therapy,Home Exercise Program,Joint Mobilizations, Manual Therapy,Patient/ Caregiver Education,Self-Care/ Home Management,Soft Tissue Mobilization,Therapeutic Activities,Therapeutic Exercises Modalities Cold Pack/Ice Massage,Electric Stimulation,Hot Packs, Ultrasound Next Visit Focus/Plan Next Note Type Treatment Note Next Visit Plan Shoulder strengthening, ROM, stretching
--- NOTE | 2022-04-20 16:47 | PT.OTN ---
Current Diagnoses Pain in left shoulder (04/20/22) Stiffness of left shoulder, not elsewhere classified (04/20/22) Strain of muscle(s) and tendon(s) of the rotator cuff of left shoulder, subsequent encounter (04/20/22) Physical Therapy Treatment Note PT-OP-A Visit Information Start: 04/11/22 15:53 Freq: Status: Active Protocol: Document 04/20/22 16:02 DCW (Rec: 04/20/22 16:47 DCW [id number]) Out-Patient Physical Therapy Visit Information Visit Information Visit Type Treatment Note Visit Start Time 16:02 Visit Stop Time 16:45 Total Visit Minutes 43 Visit Number 4 Number of COMPOUNDER Visits 0 Evaluation Information Evaluation Date 04/11/22 PT-OP-B Current Condition Start: 04/11/22 15:53 Freq: Status: Active Protocol: Document 04/11/22 15:15 DCW (Rec: 04/11/22 17:44 DCW [id number]) Current Condition History of Current Condition Onset Date 2 month history Current Complaints Left shoulder pain and limited ROM History of Current Condition Pt is a 51 year old male presenting to skilled therapy due to a two month history of left shoulder pain. Pt notes an insidious onset, it just started aching and hurting. Notes the thing that bothers it the most is reaching into the cupboard for dishes. Anything overhead typically irritates his shoulder. It is best if he just rests it. PT-OP-C Subjective Start: 04/11/22 15:53 Freq: Status: Active Protocol: Document 04/20/22 16:02 DCW (Rec: 04/20/22 16:47 DCW [id number]) OP-PT Subjective Patient Comments Patient Comments Pt reports that he feels ramirez today. PT-OP-E Functional Tests Start: 04/11/22 15:53 Freq: Status: Active Protocol: Document 04/11/22 15:15 DCW (Rec: 04/11/22 17:44 DCW [id number]) Functional Tests Leeey's Scratch Test Action 1- Left Anterior opposite shoulder Action 1- Right Posterior opposite shoulder Action 2- Left C5 Action 2- Right T5 Action 3- Left L PSIS Action 3- Right T3 PT-OP-F Manual Assessment Start: 04/11/22 15:53 Freq: Status: Active Protocol: Document 04/11/22 15:15 DCW (Rec: 04/11/22 17:44 DCW [id number]) Manual Assessments Soft Tissue Assessment Soft Tissue Mobility Assessment Tenderness with palpation 3/4: wincing and withdraw aldong left supraspinatus, infraspinatus, and subscapularis. Appears to have a void in soft tissue, potentially due to muscle atrophy, just posteriomedially to location of L posterior deltoid PT-OP-K Range of Motion Start: 04/11/22 15:53 Freq: Status: Active Protocol: Document 04/11/22 15:15 DCW (Rec: 04/11/22 17:44 DCW [id number]) Shoulder Goniometric Range of Motion Shoulder Left Passive Shoulder ROM WFL No Testing Position Supine Flexion 110 Abduction 45 Comments Empty end feel, stopped when pt reported pain Left Active Shoulder ROM WFL No Testing Position Sitting Flexion 112 Abduction 90 External Rotation at 0 degrees Abduction 65 Shoulder ROM Limitations Shoulder ROM Limitations Soft Tissue Tightness,Muscle Weakness,Pain PT-OP-L Special Tests Start: 04/11/22 15:53 Freq: Status: Active Protocol: Document 04/11/22 15:15 DCW (Rec: 04/11/22 17:44 DCW [id number]) Special Tests Shoulder Special Tests Painful Arc Test Results Positive L Passive ER Rotator Cuff Test Results Positive L Lift-Off Rotator Cuff Test Results Unable to position L arm Foster Min Impingement Test Results Positive L Grind Labrum Test Results Negative Drop Arm Rotator Cuff Test Results Positive L Belly Press Test Results Negative Apprehension Test Test Results Positive L PT-OP-M Strength Start: 04/11/22 15:53 Freq: Status: Active Protocol: Document 04/11/22 15:15 DCW (Rec: 04/11/22 17:44 DCW [id number]) Shoulder Strength Shoulder Manual Muscle Testing Left Flexion 3- Fair- Abduction (C5) 3- Fair- External Rotation 4 Good Internal Rotation 3 Fair Comments Pain with resisted flexion, abduction, and ER PT-OP-Q Treatments Start: 04/11/22 15:53 Freq: Status: Active Protocol: Document 04/20/22 16:02 DCW (Rec: 04/20/22 16:47 DCW [id number]) Cardio Equipment Upper Body Ergometer (UBE) Duration (Minutes) 4 Seat Position 14 Height 4 Gym Equipment Therapeutic Ball Antonio Exercise Details I's, Y's, and T's Ball Size/Color Green - 65 cm Body Position Prone Therapeutic Exercises Supine Exercises PROM Supine Exercise Name Shoulder flexion, ER /c PVC Side bilateral Sitting Exercises PROM Sitting Exercise Name Lillie: GH flexion Side left Standing Exercises Resisted side-stepping Standing Exercise Name Resisted UE side-stepping Resistance Yellow PROM Standing Exercise Name Shoulder AAROM - Abduction Comments PVC Internal rotation Standing Exercise Name PROM IR - Lillie Side left Manual Therapy Treatment Soft Tissue Mobilization R/C Body Location L R/C, main focus on supra/ infraspinatus Mobilization Type Sustained Pressure,Trigger Point Release Intensity/Depth Moderate Upper Trap Body Location L upper trap Mobilization Type Sustained Pressure,Trigger Point Release Intensity/Depth Superficial PT-OP-T Assessment and Plan Start: 04/11/22 15:53 Freq: Status: Active Protocol: Document 04/20/22 16:02 DCW (Rec: 04/20/22 16:47 DCW [id number]) Physical Therapy Assessment Impairments Impairments Functional Activities, Functional Mobility,Pain,ROM, Soft Tissue Mobility,Strength, Tone Goals Two Impairment Significantly limited L shoulder ROM Child Care Director 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 flexion and abduction to improve ability to take out and put away dishes overhead from his kitchen cupboard. LTG Duration 06/11/22 One Impairment Pt foes not have an appropriate home exercise program Short Term Goal (STG) Pt to be independent and compliant with an appropriate HEP STG Duration 05/11/22 Assessment Summary Assessment Pt did well with new exercises , prone Funmi's had noted decreased motion, but pt admitted that it was relatively pain-free, just didn't want to move. Physical Therapy Plan Frequency and Duration Frequency of Treatment 2x/Week Duration of Treatment Two months Plan of Care Start Date 04/11/22 Plan of Care End Date 06/11/22 Therapeutic Interventions Therapeutic Interventions Aquatic Therapy,Home Exercise Program,Joint Mobilizations, Manual Therapy,Patient/ Caregiver Education,Self-Care/ Home Management,Soft Tissue Mobilization,Therapeutic Activities,Therapeutic Exercises Modalities Cold Pack/Ice Massage,Electric Stimulation,Hot Packs, Ultrasound Next Visit Focus/Plan Next Note Type Treatment Note Next Visit Plan Shoulder strengthening, ROM, stretching
--- NOTE | 2022-04-25 16:48 | PT.OTN ---
Current Diagnoses Pain in left shoulder (04/25/22) Stiffness of left shoulder, not elsewhere classified (04/25/22) Strain of muscle(s) and tendon(s) of the rotator cuff of left shoulder, subsequent encounter (04/25/22) Physical Therapy Treatment Note PT-OP-A Visit Information Start: 04/11/22 15:53 Freq: Status: Active Protocol: Document 04/25/22 16:00 DCW (Rec: 04/25/22 16:48 DCW [id number]) Out-Patient Physical Therapy Visit Information Visit Information Visit Type Treatment Note Visit Start Time 16:00 Visit Stop Time 16:45 Total Visit Minutes 45 Visit Number 5 Number of CHANNEL DEVELOPMENT MANAGER Visits 0 Evaluation Information Evaluation Date 04/11/22 PT-OP-B Current Condition Start: 04/11/22 15:53 Freq: Status: Active Protocol: Document 04/11/22 15:15 DCW (Rec: 04/11/22 17:44 DCW [id number]) Current Condition History of Current Condition Onset Date 2 month history Current Complaints Left shoulder pain and limited ROM History of Current Condition Pt is a 51 year old male presenting to skilled therapy due to a two month history of left shoulder pain. Pt notes an insidious onset, it just started aching and hurting. Notes the thing that bothers it the most is reaching into the cupboard for dishes. Anything overhead typically irritates his shoulder. It is best if he just rests it. PT-OP-C Subjective Start: 04/11/22 15:53 Freq: Status: Active Protocol: Document 04/25/22 16:00 DCW (Rec: 04/25/22 16:48 DCW [id number]) OP-PT Subjective Patient Comments Patient Comments I think it might be getting better, but still notes significant limitations. PT-OP-E Functional Tests Start: 04/11/22 15:53 Freq: Status: Active Protocol: Document 04/11/22 15:15 DCW (Rec: 04/11/22 17:44 DCW [id number]) Functional Tests Apley's Scratch Test Action 1- Left Anterior opposite shoulder Action 1- Right Posterior opposite shoulder Action 2- Left C5 Action 2- Right T5 Action 3- Left L PSIS Action 3- Right T3 PT-OP-F Manual Assessment Start: 04/11/22 15:53 Freq: Status: Active Protocol: Document 04/11/22 15:15 DCW (Rec: 04/11/22 17:44 DCW [id number]) Manual Assessments Soft Tissue Assessment Soft Tissue Mobility Assessment Tenderness with palpation 3/4: wincing and withdraw aldong left supraspinatus, infraspinatus, and subscapularis. Appears to have a void in soft tissue, potentially due to muscle atrophy, just posteriomedially to location of L posterior deltoid PT-OP-K Range of Motion Start: 04/11/22 15:53 Freq: Status: Active Protocol: Document 04/11/22 15:15 DCW (Rec: 04/11/22 17:44 DCW [id number]) Shoulder Goniometric Range of Motion Shoulder Left Passive Shoulder ROM WFL No Testing Position Supine Flexion 110 Abduction 45 Comments Empty end feel, stopped when pt reported pain Left Active Shoulder ROM WFL No Testing Position Sitting Flexion 112 Abduction 90 External Rotation at 0 degrees Abduction 65 Shoulder ROM Limitations Shoulder ROM Limitations Soft Tissue Tightness,Muscle Weakness,Pain PT-OP-L Special Tests Start: 04/11/22 15:53 Freq: Status: Active Protocol: Document 04/11/22 15:15 DCW (Rec: 04/11/22 17:44 DCW [id number]) Special Tests Shoulder Special Tests Painful Arc Test Results Positive L Passive ER Rotator Cuff Test Results Positive L Lift-Off Rotator Cuff Test Results Unable to position L arm Foster Min Impingement Test Results Positive L Grind Labrum Test Results Negative Drop Arm Rotator Cuff Test Results Positive L Belly Press Test Results Negative Apprehension Test Test Results Positive L PT-OP-M Strength Start: 04/11/22 15:53 Freq: Status: Active Protocol: Document 04/11/22 15:15 DCW (Rec: 04/11/22 17:44 DCW [id number]) Shoulder Strength Shoulder Manual Muscle Testing Left Flexion 3- Fair- Abduction (C5) 3- Fair- External Rotation 4 Good Internal Rotation 3 Fair Comments Pain with resisted flexion, abduction, and ER PT-OP-Q Treatments Start: 04/11/22 15:53 Freq: Status: Active Protocol: Document 04/25/22 16:00 DCW (Rec: 04/25/22 16:48 DCW [id number]) Cardio Equipment Upper Body Ergometer (UBE) Duration (Minutes) 5 Seat Position 14 Height 4 Gym Equipment Therapeutic Ball Antonio Exercise Details I's, Y's, and T's Ball Size/Color Green - 65 cm Body Position Prone Therapeutic Exercises Supine Exercises PROM Supine Exercise Name Shoulder flexion, ER /c PVC Side bilateral Sitting Exercises PROM Sitting Exercise Name Lillie: GH flexion Side left Standing Exercises PROM Standing Exercise Name Shoulder AAROM - Abduction Comments PVC Internal rotation Standing Exercise Name PROM IR - Lillie Side left Manual Therapy Treatment Soft Tissue Mobilization R/C Body Location L R/C, main focus on supra/ infraspinatus Mobilization Type Sustained Pressure,Trigger Point Release Intensity/Depth Moderate Upper Trap Body Location L upper trap Mobilization Type Sustained Pressure,Trigger Point Release Intensity/Depth Superficial PT-OP-T Assessment and Plan Start: 04/11/22 15:53 Freq: Status: Active Protocol: Document 04/25/22 16:00 DCW (Rec: 04/25/22 16:48 DCW [id number]) Physical Therapy Assessment Impairments Impairments Functional Activities, Functional Mobility,Pain,ROM, Soft Tissue Mobility,Strength, Tone Goals Two Impairment Significantly limited L shoulder ROM Mcfp 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 flexion and abduction to improve ability to take out and put away dishes overhead from his kitchen cupboard. LTG Duration 06/11/22 One Impairment Pt foes not have an appropriate home exercise program Short Term Goal (STG) Pt to be independent and compliant with an appropriate HEP STG Duration 05/11/22 Assessment Summary Assessment Pt Still struggling significantly with AROM, if significant improvement not seen in next ~1 week, may need to refer back to PCP for potential imaging. Physical Therapy Plan Frequency and Duration Frequency of Treatment 2x/Week Plan of Care Start Date 04/11/22 Plan of Care End Date 06/11/22 Therapeutic Interventions Therapeutic Interventions Aquatic Therapy,Home Exercise Program,Joint Mobilizations, Manual Therapy,Patient/ Caregiver Education,Self-Care/ Home Management,Soft Tissue Mobilization,Therapeutic Activities,Therapeutic Exercises Modalities Cold Pack/Ice Massage,Electric Stimulation,Hot Packs, Ultrasound Next Visit Focus/Plan Next Note Type Treatment Note Next Visit Plan Shoulder strengthening, ROM, stretching
--- NOTE | 2022-04-27 17:33 | PT.OTN ---
Current Diagnoses Pain in left shoulder (04/27/22) Stiffness of left shoulder, not elsewhere classified (04/27/22) Strain of muscle(s) and tendon(s) of the rotator cuff of left shoulder, subsequent encounter (04/27/22) Physical Therapy Treatment Note PT-OP-A Visit Information Start: 04/11/22 15:53 Freq: Status: Active Protocol: Document 04/27/22 16:45 DCW (Rec: 04/27/22 17:33 DCW [id number]) Out-Patient Physical Therapy Visit Information Visit Information Visit Type Treatment Note Visit Start Time 16:45 Visit Stop Time 17:30 Total Visit Minutes 45 Visit Number 6 Number of INSPECTOR MISSILE Visits 0 Evaluation Information Evaluation Date 04/11/22 PT-OP-B Current Condition Start: 04/11/22 15:53 Freq: Status: Active Protocol: Document 04/11/22 15:15 DCW (Rec: 04/11/22 17:44 DCW [id number]) Current Condition History of Current Condition Onset Date 2 month history Current Complaints Left shoulder pain and limited ROM History of Current Condition Pt is a 51 year old male presenting to skilled therapy due to a two month history of left shoulder pain. Pt notes an insidious onset, it just started aching and hurting. Notes the thing that bothers it the most is reaching into the cupboard for dishes. Anything overhead typically irritates his shoulder. It is best if he just rests it. PT-OP-C Subjective Start: 04/11/22 15:53 Freq: Status: Active Protocol: Document 04/27/22 16:45 DCW (Rec: 04/27/22 17:33 DCW [id number]) OP-PT Subjective Patient Comments Patient Comments Pt notes there have not been any huge changes with his shoulder PT-OP-E Functional Tests Start: 04/11/22 15:53 Freq: Status: Active Protocol: Document 04/11/22 15:15 DCW (Rec: 04/11/22 17:44 DCW [id number]) Functional Tests Apley's Scratch Test Action 1- Left Anterior opposite shoulder Action 1- Right Posterior opposite shoulder Action 2- Left C5 Action 2- Right T5 Action 3- Left L PSIS Action 3- Right T3 PT-OP-F Manual Assessment Start: 04/11/22 15:53 Freq: Status: Active Protocol: Document 04/11/22 15:15 DCW (Rec: 04/11/22 17:44 DCW [id number]) Manual Assessments Soft Tissue Assessment Soft Tissue Mobility Assessment Tenderness with palpation 3/4: wincing and withdraw aldong left supraspinatus, infraspinatus, and subscapularis. Appears to have a void in soft tissue, potentially due to muscle atrophy, just posteriomedially to location of L posterior deltoid PT-OP-K Range of Motion Start: 04/11/22 15:53 Freq: Status: Active Protocol: Document 04/11/22 15:15 DCW (Rec: 04/11/22 17:44 DCW [id number]) Shoulder Goniometric Range of Motion Shoulder Left Passive Shoulder ROM WFL No Testing Position Supine Flexion 110 Abduction 45 Comments Empty end feel, stopped when pt reported pain Left Active Shoulder ROM WFL No Testing Position Sitting Flexion 112 Abduction 90 External Rotation at 0 degrees Abduction 65 Shoulder ROM Limitations Shoulder ROM Limitations Soft Tissue Tightness,Muscle Weakness,Pain PT-OP-L Special Tests Start: 04/11/22 15:53 Freq: Status: Active Protocol: Document 04/11/22 15:15 DCW (Rec: 04/11/22 17:44 DCW [id number]) Special Tests Shoulder Special Tests Painful Arc Test Results Positive L Passive ER Rotator Cuff Test Results Positive L Lift-Off Rotator Cuff Test Results Unable to position L arm Foster Min Impingement Test Results Positive L Grind Labrum Test Results Negative Drop Arm Rotator Cuff Test Results Positive L Belly Press Test Results Negative Apprehension Test Test Results Positive L PT-OP-M Strength Start: 04/11/22 15:53 Freq: Status: Active Protocol: Document 04/11/22 15:15 DCW (Rec: 04/11/22 17:44 DCW [id number]) Shoulder Strength Shoulder Manual Muscle Testing Left Flexion 3- Fair- Abduction (C5) 3- Fair- External Rotation 4 Good Internal Rotation 3 Fair Comments Pain with resisted flexion, abduction, and ER PT-OP-Q Treatments Start: 04/11/22 15:53 Freq: Status: Active Protocol: Document 04/27/22 16:45 DCW (Rec: 04/27/22 17:33 DCW [id number]) Cardio Equipment Upper Body Ergometer (UBE) Duration (Minutes) 5 Seat Position 14 Height 4 Gym Equipment Therapeutic Ball Funmis Exercise Details I's, Y's, and T's Ball Size/Color Green - 65 cm Body Position Prone Therapeutic Exercises Supine Exercises PROM Supine Exercise Name Shoulder flexion, ER /c PVC Side bilateral Sitting Exercises PROM Sitting Exercise Name Lillie: GH flexion Side left Standing Exercises Resisted side-stepping Standing Exercise Name Resisted UE side-stepping Resistance Yellow PROM Standing Exercise Name Shoulder AAROM - Abduction Comments PVC Internal rotation Standing Exercise Name PROM IR - Lillie Side left Manual Therapy Treatment Soft Tissue Mobilization R/C Body Location L R/C, main focus on supra/ infraspinatus Mobilization Type Sustained Pressure,Trigger Point Release Intensity/Depth Moderate Upper Trap Body Location L upper trap Mobilization Type Sustained Pressure,Trigger Point Release Intensity/Depth Superficial PT-OP-T Assessment and Plan Start: 04/11/22 15:53 Freq: Status: Active Protocol: Document 04/27/22 16:45 DCW (Rec: 04/27/22 17:33 DCW [id number]) Physical Therapy Assessment Impairments Impairments Functional Activities, Functional Mobility,Pain,ROM, Soft Tissue Mobility,Strength, Tone Goals Two Impairment Significantly limited L shoulder ROM Electrical Controls Engineer 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 flexion and abduction to improve ability to take out and put away dishes overhead from his kitchen cupboard. LTG Duration 06/11/22 One Impairment Pt foes not have an appropriate home exercise program Short Term Goal (STG) Pt to be independent and compliant with an appropriate HEP STG Duration 05/11/22 Assessment Summary Assessment Pt Still struggling significantly with AROM, if significant improvement not seen in next ~1 week, may need to refer back to PCP for potential imaging. Physical Therapy Plan Frequency and Duration Frequency of Treatment 2x/Week Plan of Care Start Date 04/11/22 Plan of Care End Date 06/11/22 Therapeutic Interventions Therapeutic Interventions Aquatic Therapy,Home Exercise Program,Joint Mobilizations, Manual Therapy,Patient/ Caregiver Education,Self-Care/ Home Management,Soft Tissue Mobilization,Therapeutic Activities,Therapeutic Exercises Modalities Cold Pack/Ice Massage,Electric Stimulation,Hot Packs, Ultrasound Next Visit Focus/Plan Next Note Type Treatment Note Next Visit Plan Shoulder strengthening, ROM, stretching
--- NOTE | 2022-05-02 16:44 | PT.OTN ---
Current Diagnoses Pain in left shoulder (05/02/22) Stiffness of left shoulder, not elsewhere classified (05/02/22) Strain of muscle(s) and tendon(s) of the rotator cuff of left shoulder, subsequent encounter (05/02/22) Physical Therapy Treatment Note PT-OP-A Visit Information Start: 04/11/22 15:53 Freq: Status: Active Protocol: Document 05/02/22 16:00 DCW (Rec: 05/02/22 16:44 DCW [id number]) Out-Patient Physical Therapy Visit Information Visit Information Visit Type Treatment Note Visit Start Time 16:00 Visit Stop Time 16:45 Total Visit Minutes 45 Visit Number 7 Number of CURING FINISHER Visits 0 Evaluation Information Evaluation Date 04/11/22 PT-OP-B Current Condition Start: 04/11/22 15:53 Freq: Status: Active Protocol: Document 04/11/22 15:15 DCW (Rec: 04/11/22 17:44 DCW [id number]) Current Condition History of Current Condition Onset Date 2 month history Current Complaints Left shoulder pain and limited ROM History of Current Condition Pt is a 51 year old male presenting to skilled therapy due to a two month history of left shoulder pain. Pt notes an insidious onset, it just started aching and hurting. Notes the thing that bothers it the most is reaching into the cupboard for dishes. Anything overhead typically irritates his shoulder. It is best if he just rests it. PT-OP-C Subjective Start: 04/11/22 15:53 Freq: Status: Active Protocol: Document 05/02/22 16:00 DCW (Rec: 05/02/22 16:44 DCW [id number]) OP-PT Subjective Patient Comments Patient Comments Shoulder has actually been reasonably okay, reports he is mostly able to reach up and grab things off the shelf. Admits that everything else seems to be going wrong, was in the ED with a migraine Monday. PT-OP-E Functional Tests Start: 04/11/22 15:53 Freq: Status: Active Protocol: Document 04/11/22 15:15 DCW (Rec: 04/11/22 17:44 DCW [id number]) Functional Tests Apley's Scratch Test Action 1- Left Anterior opposite shoulder Action 1- Right Posterior opposite shoulder Action 2- Left C5 Action 2- Right T5 Action 3- Left L PSIS Action 3- Right T3 PT-OP-F Manual Assessment Start: 04/11/22 15:53 Freq: Status: Active Protocol: Document 04/11/22 15:15 DCW (Rec: 04/11/22 17:44 DCW [id number]) Manual Assessments Soft Tissue Assessment Soft Tissue Mobility Assessment Tenderness with palpation 3/4: wincing and withdraw aldong left supraspinatus, infraspinatus, and subscapularis. Appears to have a void in soft tissue, potentially due to muscle atrophy, just posteriomedially to location of L posterior deltoid PT-OP-K Range of Motion Start: 04/11/22 15:53 Freq: Status: Active Protocol: Document 04/11/22 15:15 DCW (Rec: 04/11/22 17:44 DCW [id number]) Shoulder Goniometric Range of Motion Shoulder Left Passive Shoulder ROM WFL No Testing Position Supine Flexion 110 Abduction 45 Comments Empty end feel, stopped when pt reported pain Left Active Shoulder ROM WFL No Testing Position Sitting Flexion 112 Abduction 90 External Rotation at 0 degrees Abduction 65 Shoulder ROM Limitations Shoulder ROM Limitations Soft Tissue Tightness,Muscle Weakness,Pain PT-OP-L Special Tests Start: 04/11/22 15:53 Freq: Status: Active Protocol: Document 04/11/22 15:15 DCW (Rec: 04/11/22 17:44 DCW [id number]) Special Tests Shoulder Special Tests Painful Arc Test Results Positive L Passive ER Rotator Cuff Test Results Positive L Lift-Off Rotator Cuff Test Results Unable to position L arm Foster Min Impingement Test Results Positive L Grind Labrum Test Results Negative Drop Arm Rotator Cuff Test Results Positive L Belly Press Test Results Negative Apprehension Test Test Results Positive L PT-OP-M Strength Start: 04/11/22 15:53 Freq: Status: Active Protocol: Document 04/11/22 15:15 DCW (Rec: 04/11/22 17:44 DCW [id number]) Shoulder Strength Shoulder Manual Muscle Testing Left Flexion 3- Fair- Abduction (C5) 3- Fair- External Rotation 4 Good Internal Rotation 3 Fair Comments Pain with resisted flexion, abduction, and ER PT-OP-Q Treatments Start: 04/11/22 15:53 Freq: Status: Active Protocol: Document 05/02/22 16:00 DCW (Rec: 05/02/22 16:44 DCW [id number]) Cardio Equipment Upper Body Ergometer (UBE) Duration (Minutes) 5 Seat Position 14 Height 4 Gym Equipment Therapeutic Ball Antonio Exercise Details I's, Y's, and T's Ball Size/Color Green - 65 cm Body Position Prone Therapeutic Exercises Supine Exercises PROM Supine Exercise Name Shoulder flexion, ER /c PVC Side bilateral Sitting Exercises PROM Sitting Exercise Name Lillie: GH flexion Side left Standing Exercises Resisted side-stepping Standing Exercise Name Resisted UE side-stepping Resistance Red PROM Standing Exercise Name Shoulder AAROM - Abduction Comments PVC Internal rotation Standing Exercise Name PROM IR - Lillie Side left Manual Therapy Treatment Soft Tissue Mobilization R/C Body Location L R/C, main focus on supra/ infraspinatus Mobilization Type Sustained Pressure,Trigger Point Release Intensity/Depth Moderate Upper Trap Body Location L upper trap Mobilization Type Sustained Pressure,Trigger Point Release Intensity/Depth Superficial PT-OP-T Assessment and Plan Start: 04/11/22 15:53 Freq: Status: Active Protocol: Document 05/02/22 16:00 DC (Rec: 05/02/22 16:44 [facility] [id number]) Physical Therapy Assessment Impairments Impairments Functional Activities, Functional Mobility,Pain,ROM, Soft Tissue Mobility,Strength, Tone Goals Two Impairment Significantly limited L shoulder ROM Beautician Apprentice 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 flexion and abduction to improve ability to take out and put away dishes overhead from his kitchen cupboard. LTG Duration 06/11/22 One Impairment Pt foes not have an appropriate home exercise program Short Term Goal (STG) Pt to be independent and compliant with an appropriate HEP STG Duration 05/11/22 Assessment Summary Assessment Pt doing better today, improved PROM in all directions, less tenderness with STM. Still fairly limited in AROM. Physical Therapy Plan Frequency and Duration Frequency of Treatment 2x/Week Plan of Care Start Date 04/11/22 Plan of Care End Date 06/11/22 Therapeutic Interventions Therapeutic Interventions Aquatic Therapy,Home Exercise Program,Joint Mobilizations, Manual Therapy,Patient/ Caregiver Education,Self-Care/ Home Management,Soft Tissue Mobilization,Therapeutic Activities,Therapeutic Exercises Modalities Cold Pack/Ice Massage,Electric Stimulation,Hot Packs, Ultrasound Next Visit Focus/Plan Next Note Type Treatment Note Next Visit Plan Shoulder strengthening, ROM, stretching
--- NOTE | 2022-05-04 16:46 | PT.OTN ---
Current Diagnoses Pain in left shoulder (05/04/22) Stiffness of left shoulder, not elsewhere classified (05/04/22) Strain of muscle(s) and tendon(s) of the rotator cuff of left shoulder, subsequent encounter (05/04/22) Physical Therapy Treatment Note PT-OP-A Visit Information Start: 04/11/22 15:53 Freq: Status: Active Protocol: Document 05/04/22 16:00 DCW (Rec: 05/04/22 16:46 DCW [id number]) Out-Patient Physical Therapy Visit Information Visit Information Visit Type Treatment Note Visit Start Time 16:00 Visit Stop Time 16:45 Total Visit Minutes 45 Visit Number 8 Number of ROENTGENOLOGIST Visits 0 Evaluation Information Evaluation Date 04/11/22 PT-OP-B Current Condition Start: 04/11/22 15:53 Freq: Status: Active Protocol: Document 04/11/22 15:15 DCW (Rec: 04/11/22 17:44 DCW [id number]) Current Condition History of Current Condition Onset Date 2 month history Current Complaints Left shoulder pain and limited ROM History of Current Condition Pt is a 51 year old male presenting to skilled therapy due to a two month history of left shoulder pain. Pt notes an insidious onset, it just started aching and hurting. Notes the thing that bothers it the most is reaching into the cupboard for dishes. Anything overhead typically irritates his shoulder. It is best if he just rests it. PT-OP-C Subjective Start: 04/11/22 15:53 Freq: Status: Active Protocol: Document 05/04/22 16:00 DCW (Rec: 05/04/22 16:46 DCW [id number]) OP-PT Subjective Patient Comments Patient Comments Pt reports his shoulder is not horrible. PT-OP-E Functional Tests Start: 04/11/22 15:53 Freq: Status: Active Protocol: Document 04/11/22 15:15 DCW (Rec: 04/11/22 17:44 DCW [id number]) Functional Tests Apley's Scratch Test Action 1- Left Anterior opposite shoulder Action 1- Right Posterior opposite shoulder Action 2- Left C5 Action 2- Right T5 Action 3- Left L PSIS Action 3- Right T3 PT-OP-F Manual Assessment Start: 04/11/22 15:53 Freq: Status: Active Protocol: Document 04/11/22 15:15 DCW (Rec: 04/11/22 17:44 DCW [id number]) Manual Assessments Soft Tissue Assessment Soft Tissue Mobility Assessment Tenderness with palpation 3/4: wincing and withdraw aldong left supraspinatus, infraspinatus, and subscapularis. Appears to have a void in soft tissue, potentially due to muscle atrophy, just posteriomedially to location of L posterior deltoid PT-OP-K Range of Motion Start: 04/11/22 15:53 Freq: Status: Active Protocol: Document 04/11/22 15:15 DCW (Rec: 04/11/22 17:44 DCW [id number]) Shoulder Goniometric Range of Motion Shoulder Left Passive Shoulder ROM WFL No Testing Position Supine Flexion 110 Abduction 45 Comments Empty end feel, stopped when pt reported pain Left Active Shoulder ROM WFL No Testing Position Sitting Flexion 112 Abduction 90 External Rotation at 0 degrees Abduction 65 Shoulder ROM Limitations Shoulder ROM Limitations Soft Tissue Tightness,Muscle Weakness,Pain PT-OP-L Special Tests Start: 04/11/22 15:53 Freq: Status: Active Protocol: Document 04/11/22 15:15 DCW (Rec: 04/11/22 17:44 DCW [id number]) Special Tests Shoulder Special Tests Painful Arc Test Results Positive L Passive ER Rotator Cuff Test Results Positive L Lift-Off Rotator Cuff Test Results Unable to position L arm Foster Min Impingement Test Results Positive L Grind Labrum Test Results Negative Drop Arm Rotator Cuff Test Results Positive L Belly Press Test Results Negative Apprehension Test Test Results Positive L PT-OP-M Strength Start: 04/11/22 15:53 Freq: Status: Active Protocol: Document 04/11/22 15:15 DCW (Rec: 04/11/22 17:44 DCW [id number]) Shoulder Strength Shoulder Manual Muscle Testing Left Flexion 3- Fair- Abduction (C5) 3- Fair- External Rotation 4 Good Internal Rotation 3 Fair Comments Pain with resisted flexion, abduction, and ER PT-OP-Q Treatments Start: 04/11/22 15:53 Freq: Status: Active Protocol: Document 05/04/22 16:00 DCW (Rec: 05/04/22 16:46 DCW [id number]) Cardio Equipment Upper Body Ergometer (UBE) Duration (Minutes) 5 Seat Position 12 Height 3 Gym Equipment Therapeutic Ball Prone Walk-outs Exercise Details Prone Walk-out Ball Size/Color Green - 65 cm Body Position Prone Hughstons Exercise Details I's, Y's, and T's Ball Size/Color Green - 65 cm Body Position Prone Therapeutic Exercises Supine Exercises PROM Supine Exercise Name Shoulder flexion, ER /c PVC Side bilateral Sitting Exercises PROM Sitting Exercise Name Lillie: GH flexion Side left Standing Exercises Internal rotation Standing Exercise Name PROM IR - Lillie Side left Manual Therapy Treatment Soft Tissue Mobilization R/C Body Location L R/C, main focus on supra/ infraspinatus Mobilization Type Sustained Pressure,Trigger Point Release Intensity/Depth Moderate Upper Trap Body Location L upper trap Mobilization Type Sustained Pressure,Trigger Point Release Intensity/Depth Superficial PT-OP-T Assessment and Plan Start: 04/11/22 15:53 Freq: Status: Active Protocol: Document 05/04/22 16:00 DCW (Rec: 05/04/22 16:46 DCW [id number]) Physical Therapy Assessment Impairments Impairments Functional Activities, Functional Mobility,Pain,ROM, Soft Tissue Mobility,Strength, Tone Goals Two Impairment Significantly limited L shoulder ROM Mcc 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 flexion and abduction to improve ability to take out and put away dishes overhead from his kitchen cupboard. LTG Duration 06/11/22 One Impairment Pt foes not have an appropriate home exercise program Short Term Goal (STG) Pt to be independent and compliant with an appropriate HEP STG Duration 05/11/22 Assessment Summary Assessment Pt noted some increased discomfort with bearing weight through shoulder with new walk-out exercise, but showing some improvement with general ROM Physical Therapy Plan Frequency and Duration Frequency of Treatment 2x/Week Plan of Care Start Date 04/11/22 Plan of Care End Date 06/11/22 Therapeutic Interventions Therapeutic Interventions Aquatic Therapy,Home Exercise Program,Joint Mobilizations, Manual Therapy,Patient/ Caregiver Education,Self-Care/ Home Management,Soft Tissue Mobilization,Therapeutic Activities,Therapeutic Exercises Modalities Cold Pack/Ice Massage,Electric Stimulation,Hot Packs, Ultrasound Next Visit Focus/Plan Next Note Type Treatment Note Next Visit Plan Shoulder strengthening, ROM, stretching
--- NOTE | 2022-05-23 15:15 | PT.OTN ---
Current Diagnoses Pain in left shoulder (05/23/22) Stiffness of left shoulder, not elsewhere classified (05/23/22) Strain of muscle(s) and tendon(s) of the rotator cuff of left shoulder, subsequent encounter (05/23/22) Physical Therapy Treatment Note PT-OP-A Visit Information Start: 04/11/22 15:53 Freq: Status: Active Protocol: Document 05/23/22 14:32 DCW (Rec: 05/23/22 15:14 DCW [id number]) Out-Patient Physical Therapy Visit Information Visit Information Visit Type Treatment Note Visit Start Time 14:32 Visit Stop Time 15:15 Total Visit Minutes 43 Visit Number 9 Number of INSURANCE FOLLOW UP REPRESENTATIVE Visits 0 Evaluation Information Evaluation Date 04/11/22 PT-OP-B Current Condition Start: 04/11/22 15:53 Freq: Status: Active Protocol: Document 04/11/22 15:15 DCW (Rec: 04/11/22 17:44 DCW [id number]) Current Condition History of Current Condition Onset Date 2 month history Current Complaints Left shoulder pain and limited ROM History of Current Condition Pt is a 51 year old male presenting to skilled therapy due to a two month history of left shoulder pain. Pt notes an insidious onset, it just started aching and hurting. Notes the thing that bothers it the most is reaching into the cupboard for dishes. Anything overhead typically irritates his shoulder. It is best if he just rests it. PT-OP-C Subjective Start: 04/11/22 15:53 Freq: Status: Active Protocol: Document 05/23/22 14:32 DCW (Rec: 05/23/22 15:14 DCW [id number]) OP-PT Subjective Patient Comments Patient Comments Pt reports he spoke with the surgeon, agrees that it is improving but not where anyone is happy with it yet, so recommends just continuing with PT for now. PT-OP-E Functional Tests Start: 04/11/22 15:53 Freq: Status: Active Protocol: Document 04/11/22 15:15 DCW (Rec: 04/11/22 17:44 DCW [id number]) Functional Tests Apley's Scratch Test Action 1- Left Anterior opposite shoulder Action 1- Right Posterior opposite shoulder Action 2- Left C5 Action 2- Right T5 Action 3- Left L PSIS Action 3- Right T3 PT-OP-F Manual Assessment Start: 04/11/22 15:53 Freq: Status: Active Protocol: Document 04/11/22 15:15 DCW (Rec: 04/11/22 17:44 DCW [id number]) Manual Assessments Soft Tissue Assessment Soft Tissue Mobility Assessment Tenderness with palpation 3/4: wincing and withdraw aldong left supraspinatus, infraspinatus, and subscapularis. Appears to have a void in soft tissue, potentially due to muscle atrophy, just posteriomedially to location of L posterior deltoid PT-OP-K Range of Motion Start: 04/11/22 15:53 Freq: Status: Active Protocol: Document 04/11/22 15:15 DCW (Rec: 04/11/22 17:44 DCW [id number]) Shoulder Goniometric Range of Motion Shoulder Left Passive Shoulder ROM WFL No Testing Position Supine Flexion 110 Abduction 45 Comments Empty end feel, stopped when pt reported pain Left Active Shoulder ROM WFL No Testing Position Sitting Flexion 112 Abduction 90 External Rotation at 0 degrees Abduction 65 Shoulder ROM Limitations Shoulder ROM Limitations Soft Tissue Tightness,Muscle Weakness,Pain PT-OP-L Special Tests Start: 04/11/22 15:53 Freq: Status: Active Protocol: Document 04/11/22 15:15 DCW (Rec: 04/11/22 17:44 DCW [id number]) Special Tests Shoulder Special Tests Painful Arc Test Results Positive L Passive ER Rotator Cuff Test Results Positive L Lift-Off Rotator Cuff Test Results Unable to position L arm Foster Min Impingement Test Results Positive L Grind Labrum Test Results Negative Drop Arm Rotator Cuff Test Results Positive L Belly Press Test Results Negative Apprehension Test Test Results Positive L PT-OP-M Strength Start: 04/11/22 15:53 Freq: Status: Active Protocol: Document 04/11/22 15:15 DCW (Rec: 04/11/22 17:44 DCW [id number]) Shoulder Strength Shoulder Manual Muscle Testing Left Flexion 3- Fair- Abduction (C5) 3- Fair- External Rotation 4 Good Internal Rotation 3 Fair Comments Pain with resisted flexion, abduction, and ER PT-OP-Q Treatments Start: 04/11/22 15:53 Freq: Status: Active Protocol: Document 05/23/22 14:32 DCW (Rec: 05/23/22 15:14 DCW [id number]) Cardio Equipment Upper Body Ergometer (UBE) Duration (Minutes) 5 Seat Position 12 Height 3 Therapeutic Exercises Supine Exercises PROM Supine Exercise Name Shoulder flexion, abduction /c PVC Side bilateral Sitting Exercises PROM Sitting Exercise Name Lillie: GH flexion Side left Standing Exercises Serratus Wall Slide Standing Exercise Name Serratus Wall Slide Side bilateral Resistance Red Comments HEP Resisted side-stepping Standing Exercise Name Resisted UE side-stepping Resistance Red Internal rotation Standing Exercise Name PROM IR - Lillie Side left Manual Therapy Treatment Soft Tissue Mobilization R/C Body Location L R/C, main focus on supra/ infraspinatus Mobilization Type Sustained Pressure,Trigger Point Release Intensity/Depth Moderate Upper Trap Body Location L upper trap Mobilization Type Sustained Pressure,Trigger Point Release Intensity/Depth Superficial PT-OP-T Assessment and Plan Start: 04/11/22 15:53 Freq: Status: Active Protocol: Document 05/23/22 14:32 DCW (Rec: 05/23/22 15:14 DCW [id number]) Physical Therapy Assessment Impairments Impairments Functional Activities, Functional Mobility,Pain,ROM, Soft Tissue Mobility,Strength, Tone Goals Two Impairment Significantly limited L shoulder ROM Executive Account Manager 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 flexion and abduction to improve ability to take out and put away dishes overhead from his kitchen cupboard. LTG Duration 06/11/22 One Impairment Pt foes not have an appropriate home exercise program Short Term Goal (STG) Pt to be independent and compliant with an appropriate HEP STG Duration 05/11/22 Assessment Summary Assessment Pt did fairly well following an extended break from PT due to scheduling difficulties. Pt still limited by pain and stiffness at end-range ROM, very tender with palpation to parascapular musculature. Physical Therapy Plan Frequency and Duration Frequency of Treatment 2x/Week Plan of Care Start Date 04/11/22 Plan of Care End Date 06/11/22 Therapeutic Interventions Therapeutic Interventions Aquatic Therapy,Home Exercise Program,Joint Mobilizations, Manual Therapy,Patient/ Caregiver Education,Self-Care/ Home Management,Soft Tissue Mobilization,Therapeutic Activities,Therapeutic Exercises Modalities Cold Pack/Ice Massage,Electric Stimulation,Hot Packs, Ultrasound Next Visit Focus/Plan Next Note Type Treatment Note Next Visit Plan Shoulder strengthening, ROM, stretching
--- NOTE | 2022-05-31 16:01 | PT.OTN ---
Current Diagnoses Pain in left shoulder (05/31/22) Stiffness of left shoulder, not elsewhere classified (05/31/22) Strain of muscle(s) and tendon(s) of the rotator cuff of left shoulder, subsequent encounter (05/31/22) Physical Therapy Treatment Note PT-OP-A Visit Information Start: 04/11/22 15:53 Freq: Status: Active Protocol: Document 05/31/22 15:15 DCW (Rec: 05/31/22 16:00 DCW [id number]) Out-Patient Physical Therapy Visit Information Visit Information Visit Type Treatment Note Visit Start Time 15:15 Visit Stop Time 16:00 Total Visit Minutes 45 Visit Number 10 Number of DENTAL CHAIR ASSEMBLER Visits 0 Evaluation Information Evaluation Date 04/11/22 PT-OP-B Current Condition Start: 04/11/22 15:53 Freq: Status: Active Protocol: Document 04/11/22 15:15 DCW (Rec: 04/11/22 17:44 DCW [id number]) Current Condition History of Current Condition Onset Date 2 month history Current Complaints Left shoulder pain and limited ROM History of Current Condition Pt is a 51 year old male presenting to skilled therapy due to a two month history of left shoulder pain. Pt notes an insidious onset, it just started aching and hurting. Notes the thing that bothers it the most is reaching into the cupboard for dishes. Anything overhead typically irritates his shoulder. It is best if he just rests it. PT-OP-C Subjective Start: 04/11/22 15:53 Freq: Status: Active Protocol: Document 05/31/22 15:15 DCW (Rec: 05/31/22 16:00 DCW [id number]) OP-PT Subjective Patient Comments Patient Comments Pt feels his shoulder has not felt like there has been much of a change recently, but significantly improved since the start ot PT. PT-OP-E Functional Tests Start: 04/11/22 15:53 Freq: Status: Active Protocol: Document 04/11/22 15:15 DCW (Rec: 04/11/22 17:44 DCW [id number]) Functional Tests Apley's Scratch Test Action 1- Left Anterior opposite shoulder Action 1- Right Posterior opposite shoulder Action 2- Left C5 Action 2- Right T5 Action 3- Left L PSIS Action 3- Right T3 PT-OP-F Manual Assessment Start: 04/11/22 15:53 Freq: Status: Active Protocol: Document 04/11/22 15:15 DCW (Rec: 04/11/22 17:44 DCW [id number]) Manual Assessments Soft Tissue Assessment Soft Tissue Mobility Assessment Tenderness with palpation 3/4: wincing and withdraw aldong left supraspinatus, infraspinatus, and subscapularis. Appears to have a void in soft tissue, potentially due to muscle atrophy, just posteriomedially to location of L posterior deltoid PT-OP-K Range of Motion Start: 04/11/22 15:53 Freq: Status: Active Protocol: Document 04/11/22 15:15 DCW (Rec: 04/11/22 17:44 DCW [id number]) Shoulder Goniometric Range of Motion Shoulder Left Passive Shoulder ROM WFL No Testing Position Supine Flexion 110 Abduction 45 Comments Empty end feel, stopped when pt reported pain Left Active Shoulder ROM WFL No Testing Position Sitting Flexion 112 Abduction 90 External Rotation at 0 degrees Abduction 65 Shoulder ROM Limitations Shoulder ROM Limitations Soft Tissue Tightness,Muscle Weakness,Pain PT-OP-L Special Tests Start: 04/11/22 15:53 Freq: Status: Active Protocol: Document 04/11/22 15:15 DCW (Rec: 04/11/22 17:44 DCW [id number]) Special Tests Shoulder Special Tests Painful Arc Test Results Positive L Passive ER Rotator Cuff Test Results Positive L Lift-Off Rotator Cuff Test Results Unable to position L arm Foster Min Impingement Test Results Positive L Grind Labrum Test Results Negative Drop Arm Rotator Cuff Test Results Positive L Belly Press Test Results Negative Apprehension Test Test Results Positive L PT-OP-M Strength Start: 04/11/22 15:53 Freq: Status: Active Protocol: Document 04/11/22 15:15 DCW (Rec: 04/11/22 17:44 DCW [id number]) Shoulder Strength Shoulder Manual Muscle Testing Left Flexion 3- Fair- Abduction (C5) 3- Fair- External Rotation 4 Good Internal Rotation 3 Fair Comments Pain with resisted flexion, abduction, and ER PT-OP-Q Treatments Start: 04/11/22 15:53 Freq: Status: Active Protocol: Document 05/31/22 15:15 DCW (Rec: 05/31/22 16:00 DCW [id number]) Cardio Equipment Upper Body Ergometer (UBE) Duration (Minutes) 5 Seat Position 12 Height 3 Gym Equipment Therapeutic Ball Prone Walk-outs Exercise Details Prone Walk-out Ball Size/Color Green - 65 cm Body Position Prone Hughstons Exercise Details I's, Y's, and T's Ball Size/Color Green - 65 cm 4# Body Position Prone Therapeutic Exercises Supine Exercises PROM Supine Exercise Name Shoulder flexion, abduction /c PVC Side bilateral Standing Exercises Resisted side-stepping Standing Exercise Name Resisted UE side-stepping Resistance Red Internal rotation Standing Exercise Name PROM IR - Lillie Side left Manual Therapy Treatment Soft Tissue Mobilization R/C Body Location L R/C, main focus on supra/ infraspinatus Mobilization Type Sustained Pressure,Trigger Point Release Intensity/Depth Moderate Upper Trap Body Location L upper trap Mobilization Type Sustained Pressure,Trigger Point Release Intensity/Depth Superficial PT-OP-T Assessment and Plan Start: 04/11/22 15:53 Freq: Status: Active Protocol: Document 05/31/22 15:15 DCW (Rec: 05/31/22 16:00 DCW [id number]) Physical Therapy Assessment Impairments Impairments Functional Activities, Functional Mobility,Pain,ROM, Soft Tissue Mobility,Strength, Tone Goals Two Impairment Significantly limited L shoulder ROM Academic Affairs Dean 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 flexion and abduction to improve ability to take out and put away dishes overhead from his kitchen cupboard. LTG Duration 06/11/22 One Impairment Pt foes not have an appropriate home exercise program Short Term Goal (STG) Pt to be independent and compliant with an appropriate HEP STG Duration 05/11/22 Assessment Summary Assessment Pt improving slightly with passive ROM, still fatigues quickly with AROM, addition of weights during prone shoulder exercises caused significant increase in feelings of fatigue and weakness. Physical Therapy Plan Frequency and Duration Frequency of Treatment 2x/Week Plan of Care Start Date 04/11/22 Plan of Care End Date 06/11/22 Therapeutic Interventions Therapeutic Interventions Aquatic Therapy,Home Exercise Program,Joint Mobilizations, Manual Therapy,Patient/ Caregiver Education,Self-Care/ Home Management,Soft Tissue Mobilization,Therapeutic Activities,Therapeutic Exercises Modalities Cold Pack/Ice Massage,Electric Stimulation,Hot Packs, Ultrasound Next Visit Focus/Plan Next Note Type Treatment Note Next Visit Plan Shoulder strengthening, ROM, stretching
--- NOTE | 2022-07-05 12:49 | PT.OTN ---
Current Diagnoses Pain in left shoulder (07/05/22) Stiffness of left shoulder, not elsewhere classified (07/05/22) Strain of muscle(s) and tendon(s) of the rotator cuff of left shoulder, subsequent encounter (07/05/22) Physical Therapy Treatment Note PT-OP-A Visit Information Start: 04/11/22 15:53 Freq: Status: Active Protocol: Document 07/05/22 12:00 DCW (Rec: 07/05/22 12:49 DCW [id number]) Out-Patient Physical Therapy Visit Information Visit Information Visit Type Treatment Note Visit Start Time 12:00 Visit Stop Time 12:45 Total Visit Minutes 45 Visit Number 11 Number of FRONT OFFICE DIRECTOR Visits 0 Evaluation Information Evaluation Date 04/11/22 PT-OP-B Current Condition Start: 04/11/22 15:53 Freq: Status: Active Protocol: Document 04/11/22 15:15 DCW (Rec: 04/11/22 17:44 DCW [id number]) Current Condition History of Current Condition Onset Date 2 month history Current Complaints Left shoulder pain and limited ROM History of Current Condition Pt is a 51 year old male presenting to skilled therapy due to a two month history of left shoulder pain. Pt notes an insidious onset, it just started aching and hurting. Notes the thing that bothers it the most is reaching into the cupboard for dishes. Anything overhead typically irritates his shoulder. It is best if he just rests it. PT-OP-C Subjective Start: 04/11/22 15:53 Freq: Status: Active Protocol: Document 07/05/22 12:00 DCW (Rec: 07/05/22 12:49 DCW [id number]) OP-PT Subjective Patient Comments Patient Comments It's made good progress with my range of motion, but it's still not where I want it to be. PT-OP-E Functional Tests Start: 04/11/22 15:53 Freq: Status: Active Protocol: Document 07/05/22 12:00 DCW (Rec: 07/05/22 12:19 DCW [id number]) Functional Tests Apley's Scratch Test Action 1- Left Lateral opposite shoulder Action 1- Right Posterior opposite shoulder Action 2- Left T3 Action 2- Right T5 Action 3- Left T7 Action 3- Right T3 PT-OP-F Manual Assessment Start: 04/11/22 15:53 Freq: Status: Active Protocol: Document 07/05/22 12:00 DCW (Rec: 07/05/22 12:19 CTW [id number]) Manual Assessments Soft Tissue Assessment Soft Tissue Mobility Assessment Tenderness with palpation 1/4: complaint of pain along left supraspinatus, infraspinatus, and subscapularis. PT-OP-K Range of Motion Start: 04/11/22 15:53 Freq: Status: Active Protocol: Document 07/05/22 12:00 DCW (Rec: 07/05/22 12:19 [facility] [id number]) Shoulder Goniometric Range of Motion Shoulder Left Passive Shoulder ROM WFL No Testing Position Sitting Flexion 160 Abduction 160 Left Active Shoulder ROM WFL No Testing Position Sitting Flexion 140 Abduction 116 External Rotation at 0 degrees Abduction 65 Shoulder ROM Limitations Shoulder ROM Limitations Muscle Weakness,Pain PT-OP-L Special Tests Start: 04/11/22 15:53 Freq: Status: Active Protocol: Document 07/05/22 12:00 DCW (Rec: 07/05/22 12:19 [facility] [employer] [id number]) Special Tests Shoulder Special Tests Painful Arc Test Results Positive L Passive ER Rotator Cuff Test Results Negative Lift-Off Rotator Cuff Test Results Positive L Foster Min Impingement Test Results Positive L Grind Labrum Test Results Negative Drop Arm Rotator Cuff Test Results Negative Belly Press Test Results Positive L Apprehension Test Test Results Positive L PT-OP-M Strength Start: 04/11/22 15:53 Freq: Status: Active Protocol: Document 07/05/22 12:00 DCW (Rec: 07/05/22 12:19 [facility] [employer] [id number]) Shoulder Strength Shoulder Manual Muscle Testing Left Flexion 3+ Fair+ Abduction (C5) 3 Fair External Rotation 4+ Good+ Internal Rotation 3+ Fair+ Comments Pain with resisted abduction PT-OP-Q Treatments Start: 04/11/22 15:53 Freq: Status: Active Protocol: Document 07/05/22 12:00 DCW (Rec: 07/05/22 12:49 [facility] [id number]) Gym Equipment Therapeutic Ball Prone Walk-outs Exercise Details Prone Walk-out Ball Size/Color Green - 65 cm Body Position Prone Hughstons Exercise Details I's, Y's, and T's Ball Size/Color Green - 65 cm 4# Body Position Prone Therapeutic Exercises Sitting Exercises PROM Sitting Exercise Name Lilile: GH flexion Side left Manual Therapy Treatment Soft Tissue Mobilization R/C Body Location L R/C, main focus on supra/ infraspinatus Mobilization Type Sustained Pressure,Trigger Point Release Intensity/Depth Moderate Upper Trap Body Location L upper trap Mobilization Type Sustained Pressure,Trigger Point Release Intensity/Depth Superficial PT-OP-T Assessment and Plan Start: 04/11/22 15:53 Freq: Status: Active Protocol: Document 07/05/22 12:00 DCW (Rec: 07/05/22 12:49 DCW [id number]) Physical Therapy Assessment Impairments Impairments Functional Activities, Functional Mobility,Pain,ROM, Soft Tissue Mobility,Strength, Tone Goals Two Impairment Significantly limited L shoulder ROM Long-Term 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 flexion and abduction to improve ability to take out and put away dishes overhead from his kitchen cupboard. LTG Duration 09/05/22 One Impairment Pt does not have an appropriate home exercise program Short Term Goal (STG) Pt to be independent and compliant with an appropriate HEP STG Duration 08/05/22 Assessment Summary Assessment Pt has made great progress since initial evaluation, better in all ROM planes, still very sore at end-range, showing continued weakness, although is improving. Pt would likely benefit from continued skilled intervention Physical Therapy Plan Frequency and Duration Frequency of Treatment 2x/Week Plan of Care Start Date 07/05/22 Plan of Care End Date 09/05/22 Therapeutic Interventions Therapeutic Interventions Aquatic Therapy,Home Exercise Program,Joint Mobilizations, Manual Therapy,Patient/ Caregiver Education,Self-Care/ Home Management,Soft Tissue Mobilization,Therapeutic Activities,Therapeutic Exercises Modalities Cold Pack/Ice Massage,Electric Stimulation,Hot Packs, Ultrasound Next Visit Focus/Plan Next Note Type Treatment Note Next Visit Plan Shoulder strengthening, ROM, stretching
--- NOTE | 2022-07-05 12:50 | PT.OPPOC ---
Physical, Occupational & Speech Therapy At [facility] Current Diagnoses Pain in left shoulder (07/05/22) Stiffness of left shoulder, not elsewhere classified (07/05/22) Strain of muscle(s) and tendon(s) of the rotator cuff of left shoulder, subsequent encounter (07/05/22) Visit Care Team Role Provider Type Riley Isaac MD Attending Provider Physician Family Provider Primary Care Provider Referring Provider Specialty: Internal Medicine Address: [address] [place] [address], [address], [facility] Email: [email or web address] Plan Of Care PT-OP-T Assessment and Plan Start: 04/11/22 15:53 Freq: Status: Active Protocol: Document 07/05/22 12:00 DCW (Rec: 07/05/22 12:49 DCW [id number]) Physical Therapy Assessment Impairments Impairments Functional Activities, Functional Mobility,Pain,ROM, Soft Tissue Mobility,Strength, Tone Goals Two Impairment Significantly limited L shoulder ROM Prison 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 flexion and abduction to improve ability to take out and put away dishes overhead from his kitchen cupboard. LTG Duration 09/05/22 One Impairment Pt does not have an appropriate home exercise program Short Term Goal (STG) Pt to be independent and compliant with an appropriate HEP STG Duration 08/05/22 Assessment Summary Assessment Pt has made great progress since initial evaluation, better in all ROM planes, still very sore at end-range, showing continued weakness, although is improving. Pt would likely benefit from continued skilled intervention Physical Therapy Plan Frequency and Duration Frequency of Treatment 2x/Week Plan of Care Start Date 07/05/22 Plan of Care End Date 09/05/22 Therapeutic Interventions Therapeutic Interventions Aquatic Therapy,Home Exercise Program,Joint Mobilizations, Manual Therapy,Patient/ Caregiver Education,Self-Care/ Home Management,Soft Tissue Mobilization,Therapeutic Activities,Therapeutic Exercises Modalities Cold Pack/Ice Massage,Electric Stimulation,Hot Packs, Ultrasound Next Visit Focus/Plan Next Note Type Treatment Note Next Visit Plan Shoulder strengthening, ROM, stretching Plan of Care Dates Plan of Care Start Date 07/05/22 Plan of Care End Date 09/05/22 Electronically Signed by: Huy Caal, PT 07/05/22 0821 If you are in agreement with this Plan of Care, please return a signed and dated copy. I have reviewed this Plan of Care and certify that the skilled therapy services above are required to meet the patient?s needs. Physician Signature Date Printed Name and Credentials Clinical Instructor Signature Printed Name and Credentials
--- NOTE | 2022-07-13 17:30 | PT.OTN ---
Current Diagnoses Pain in left shoulder (07/13/22) Stiffness of left shoulder, not elsewhere classified (07/13/22) Strain of muscle(s) and tendon(s) of the rotator cuff of left shoulder, subsequent encounter (07/13/22) Physical Therapy Treatment Note PT-OP-A Visit Information Start: 04/11/22 15:53 Freq: Status: Active Protocol: Document 07/13/22 16:48 DCW (Rec: 07/13/22 17:30 DCW [id number]) Out-Patient Physical Therapy Visit Information Visit Information Visit Type Treatment Note Visit Start Time 16:48 Visit Stop Time 17:30 Total Visit Minutes 42 Visit Number 12 Number of SECURITY SERVICES MANAGER Visits 0 Evaluation Information Evaluation Date 04/11/22 PT-OP-B Current Condition Start: 04/11/22 15:53 Freq: Status: Active Protocol: Document 04/11/22 15:15 DCW (Rec: 04/11/22 17:44 DCW [id number]) Current Condition History of Current Condition Onset Date 2 month history Current Complaints Left shoulder pain and limited ROM History of Current Condition Pt is a 51 year old male presenting to skilled therapy due to a two month history of left shoulder pain. Pt notes an insidious onset, it just started aching and hurting. Notes the thing that bothers it the most is reaching into the cupboard for dishes. Anything overhead typically irritates his shoulder. It is best if he just rests it. PT-OP-C Subjective Start: 04/11/22 15:53 Freq: Status: Active Protocol: Document 07/13/22 16:48 DCW (Rec: 07/13/22 17:30 DCW [id number]) OP-PT Subjective Patient Comments Patient Comments Pt reports that his shoulder is not too bad today. PT-OP-E Functional Tests Start: 04/11/22 15:53 Freq: Status: Active Protocol: Document 07/05/22 12:00 DCW (Rec: 07/05/22 12:19 DCW [id number]) Functional Tests Apley's Scratch Test Action 1- Left Lateral opposite shoulder Action 1- Right Posterior opposite shoulder Action 2- Left T3 Action 2- Right T5 Action 3- Left T7 Action 3- Right T3 PT-OP-F Manual Assessment Start: 04/11/22 15:53 Freq: Status: Active Protocol: Document 07/05/22 12:00 DCW (Rec: 07/05/22 12:19 DCW [id number]) Manual Assessments Soft Tissue Assessment Soft Tissue Mobility Assessment Tenderness with palpation 1/4: complaint of pain along left supraspinatus, infraspinatus, and subscapularis. PT-OP-K Range of Motion Start: 04/11/22 15:53 Freq: Status: Active Protocol: Document 07/05/22 12:00 DCW (Rec: 07/05/22 12:19 DCW [id number]) Shoulder Goniometric Range of Motion Shoulder Left Passive Shoulder ROM WFL No Testing Position Sitting Flexion 160 Abduction 160 Left Active Shoulder ROM WFL No Testing Position Sitting Flexion 140 Abduction 116 External Rotation at 0 degrees Abduction 65 Shoulder ROM Limitations Shoulder ROM Limitations Muscle Weakness,Pain PT-OP-L Special Tests Start: 04/11/22 15:53 Freq: Status: Active Protocol: Document 07/05/22 12:00 DCW (Rec: 07/05/22 12:19 DCW [id number]) Special Tests Shoulder Special Tests Painful Arc Test Results Positive L Passive ER Rotator Cuff Test Results Negative Lift-Off Rotator Cuff Test Results Positive L Foster Min Impingement Test Results Positive L Grind Labrum Test Results Negative Drop Arm Rotator Cuff Test Results Negative Belly Press Test Results Positive L Apprehension Test Test Results Positive L PT-OP-M Strength Start: 04/11/22 15:53 Freq: Status: Active Protocol: Document 07/05/22 12:00 DCW (Rec: 07/05/22 12:19 DCW [id number]) Shoulder Strength Shoulder Manual Muscle Testing Left Flexion 3+ Fair+ Abduction (C5) 3 Fair External Rotation 4+ Good+ Internal Rotation 3+ Fair+ Comments Pain with resisted abduction PT-OP-Q Treatments Start: 04/11/22 15:53 Freq: Status: Active Protocol: Document 07/13/22 16:48 DCW (Rec: 07/13/22 17:30 DCW [id number]) Cardio Equipment Upper Body Ergometer (UBE) Duration (Minutes) 5 Seat Position 12 Height 3 Gym Equipment Therapeutic Ball Prone Walk-outs Exercise Details Prone Walk-out Ball Size/Color Green - 65 cm Body Position Prone Hughstons Exercise Details I's, Y's, and T's Ball Size/Color Green - 65 cm 4# Body Position Prone Therapeutic Exercises Supine Exercises PROM Supine Exercise Name Shoulder flexion, ER /c PVC Side bilateral Standing Exercises PNF Standing Exercise Name D1/D2 Flexion Side left Resistance 3# Other Exercises Body Blade Other Exercise Name Body Blade Side left Resistance Yellow Comments Flexion, Abduction Manual Therapy Treatment Soft Tissue Mobilization R/C Body Location L R/C, main focus on supra/ infraspinatus Mobilization Type Sustained Pressure,Trigger Point Release Intensity/Depth Moderate Upper Trap Body Location L upper trap Mobilization Type Sustained Pressure,Trigger Point Release Intensity/Depth Superficial PT-OP-T Assessment and Plan Start: 04/11/22 15:53 Freq: Status: Active Protocol: Document 07/13/22 16:48 DCW (Rec: 07/13/22 17:30 DCW [id number]) Physical Therapy Assessment Impairments Impairments Functional Activities, Functional Mobility,Pain,ROM, Soft Tissue Mobility,Strength, Tone Goals Two Impairment Significantly limited L shoulder ROM Snf 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 flexion and abduction to improve ability to take out and put away dishes overhead from his kitchen cupboard. LTG Duration 09/05/22 One Impairment Pt does not have an appropriate home exercise program Short Term Goal (STG) Pt to be independent and compliant with an appropriate HEP STG Duration 08/05/22 Assessment Summary Assessment Pt still struggling with end- range pain, especially with external rotation. Continue to work on decreasing pain associated with GH mobility. Physical Therapy Plan Frequency and Duration Frequency of Treatment 2x/Week Plan of Care Start Date 07/05/22 Plan of Care End Date 09/05/22 Therapeutic Interventions Therapeutic Interventions Aquatic Therapy,Home Exercise Program,Joint Mobilizations, Manual Therapy,Patient/ Caregiver Education,Self-Care/ Home Management,Soft Tissue Mobilization,Therapeutic Activities,Therapeutic Exercises Modalities Cold Pack/Ice Massage,Electric Stimulation,Hot Packs, Ultrasound Next Visit Focus/Plan Next Note Type Treatment Note Next Visit Plan Shoulder strengthening, ROM, stretching
--- NOTE | 2022-07-21 12:47 | PT.OTN ---
Current Diagnoses Pain in left shoulder (07/21/22) Stiffness of left shoulder, not elsewhere classified (07/21/22) Strain of muscle(s) and tendon(s) of the rotator cuff of left shoulder, subsequent encounter (07/21/22) Physical Therapy Treatment Note PT-OP-A Visit Information Start: 04/11/22 15:53 Freq: Status: Active Protocol: Document 07/21/22 12:05 DCW (Rec: 07/21/22 12:47 DCW [id number]) Out-Patient Physical Therapy Visit Information Visit Information Visit Type Treatment Note Visit Start Time 12:05 Visit Stop Time 12:45 Total Visit Minutes 40 Visit Number 13 Number of OIL FIELD RIG BUILDER Visits 0 Evaluation Information Evaluation Date 04/11/22 PT-OP-B Current Condition Start: 04/11/22 15:53 Freq: Status: Active Protocol: Document 04/11/22 15:15 DCW (Rec: 04/11/22 17:44 DCW [id number]) Current Condition History of Current Condition Onset Date 2 month history Current Complaints Left shoulder pain and limited ROM History of Current Condition Pt is a 51 year old male presenting to skilled therapy due to a two month history of left shoulder pain. Pt notes an insidious onset, it just started aching and hurting. Notes the thing that bothers it the most is reaching into the cupboard for dishes. Anything overhead typically irritates his shoulder. It is best if he just rests it. PT-OP-C Subjective Start: 04/11/22 15:53 Freq: Status: Active Protocol: Document 07/21/22 12:05 DCW (Rec: 07/21/22 12:47 DCW [id number]) OP-PT Subjective Patient Comments Patient Comments Pt reports his shoulder is feeling okay, within reason. PT-OP-E Functional Tests Start: 04/11/22 15:53 Freq: Status: Active Protocol: Document 07/05/22 12:00 DCW (Rec: 07/05/22 12:19 DCW [id number]) Functional Tests Apley's Scratch Test Action 1- Left Lateral opposite shoulder Action 1- Right Posterior opposite shoulder Action 2- Left T3 Action 2- Right T5 Action 3- Left T7 Action 3- Right T3 PT-OP-F Manual Assessment Start: 04/11/22 15:53 Freq: Status: Active Protocol: Document 07/05/22 12:00 DCW (Rec: 07/05/22 12:19 DCW [id number]) Manual Assessments Soft Tissue Assessment Soft Tissue Mobility Assessment Tenderness with palpation 1/: complaint of pain along left supraspinatus, infraspinatus, and subscapularis. PT-OP-K Range of Motion Start: 04/11/22 15:53 Freq: Status: Active Protocol: Document 07/05/22 12:00 DCW (Rec: 07/05/22 12:19 DCW [id number]) Shoulder Goniometric Range of Motion Shoulder Left Passive Shoulder ROM WFL No Testing Position Sitting Flexion 160 Abduction 160 Left Active Shoulder ROM WFL No Testing Position Sitting Flexion 140 Abduction 116 External Rotation at 0 degrees Abduction 65 Shoulder ROM Limitations Shoulder ROM Limitations Muscle Weakness,Pain PT-OP-L Special Tests Start: 04/11/22 15:53 Freq: Status: Active Protocol: Document 07/05/22 12:00 DCW (Rec: 07/05/22 12:19 DCW [id number]) Special Tests Shoulder Special Tests Painful Arc Test Results Positive L Passive ER Rotator Cuff Test Results Negative Lift-Off Rotator Cuff Test Results Positive L Foster Min Impingement Test Results Positive L Grind Labrum Test Results Negative Drop Arm Rotator Cuff Test Results Negative Belly Press Test Results Positive L Apprehension Test Test Results Positive L PT-OP-M Strength Start: 04/11/22 15:53 Freq: Status: Active Protocol: Document 07/05/22 12:00 DCW (Rec: 07/05/22 12:19 DCW [id number]) Shoulder Strength Shoulder Manual Muscle Testing Left Flexion 3+ Fair+ Abduction (C5) 3 Fair External Rotation 4+ Good+ Internal Rotation 3+ Fair+ Comments Pain with resisted abduction PT-OP-Q Treatments Start: 04/11/22 15:53 Freq: Status: Active Protocol: Document 07/21/22 12:05 DCW (Rec: 07/21/22 12:47 DCW [id number]) Cardio Equipment Upper Body Ergometer (UBE) Duration (Minutes) 5 Seat Position 12 Height 3.5 Gym Equipment Therapeutic Ball Prone Walk-outs Exercise Details Prone Walk-out Ball Size/Color Green - 65 cm Body Position Prone Hughstons Exercise Details I's, Y's, and T's Ball Size/Color Green - 65 cm 5# Body Position Prone Therapeutic Exercises Supine Exercises PROM Supine Exercise Name Shoulder flexion, ER /c PVC Side bilateral Manual Therapy Treatment Soft Tissue Mobilization R/C Body Location L R/C, main focus on supra/ infraspinatus Mobilization Type Sustained Pressure,Trigger Point Release Intensity/Depth Moderate Upper Trap Body Location L upper trap Mobilization Type Sustained Pressure,Trigger Point Release Intensity/Depth Superficial PT-OP-T Assessment and Plan Start: 04/11/22 15:53 Freq: Status: Active Protocol: Document 07/21/22 12:05 DCW (Rec: 07/21/22 12:47 DCW [id number]) Physical Therapy Assessment Impairments Impairments Functional Activities, Functional Mobility,Pain,ROM, Soft Tissue Mobility,Strength, Tone Goals Two Impairment Significantly limited L shoulder ROM Fci 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 flexion and abduction to improve ability to take out and put away dishes overhead from his kitchen cupboard. LTG Duration 09/05/22 One Impairment Pt does not have an appropriate home exercise program Short Term Goal (STG) Pt to be independent and compliant with an appropriate HEP STG Duration 08/05/22 Assessment Summary Assessment Minimal change from last visit , mostly pain with end-range movements. If recent plateau continues, may likely need to return to PCP or ortho for follow-up. Physical Therapy Plan Frequency and Duration Frequency of Treatment 2x/Week Plan of Care Start Date 07/05/22 Plan of Care End Date 09/05/22 Therapeutic Interventions Therapeutic Interventions Aquatic Therapy,Home Exercise Program,Joint Mobilizations, Manual Therapy,Patient/ Caregiver Education,Self-Care/ Home Management,Soft Tissue Mobilization,Therapeutic Activities,Therapeutic Exercises Modalities Cold Pack/Ice Massage,Electric Stimulation,Hot Packs, Ultrasound Next Visit Focus/Plan Next Note Type Treatment Note Next Visit Plan Shoulder strengthening, ROM, stretching
--- NOTE | 2022-08-10 14:15 | PT.OTN ---
Current Diagnoses Pain in left shoulder (08/10/22) Stiffness of left shoulder, not elsewhere classified (08/10/22) Strain of muscle(s) and tendon(s) of the rotator cuff of left shoulder, subsequent encounter (08/10/22) Physical Therapy Treatment Note PT-OP-A Visit Information Start: 04/11/22 15:53 Freq: Status: Active Protocol: Document 08/10/22 13:45 DCW (Rec: 08/10/22 14:15 DCW [id number]) Out-Patient Physical Therapy Visit Information Visit Information Visit Type Treatment Note Visit Start Time 13:45 Visit Stop Time 14:15 Total Visit Minutes 30 Visit Number 14 Number of DIANETIC COUNSELOR Visits 0 Evaluation Information Evaluation Date 04/11/22 PT-OP-B Current Condition Start: 04/11/22 15:53 Freq: Status: Active Protocol: Document 04/11/22 15:15 DCW (Rec: 04/11/22 17:44 DCW [id number]) Current Condition History of Current Condition Onset Date 2 month history Current Complaints Left shoulder pain and limited ROM History of Current Condition Pt is a 51 year old male presenting to skilled therapy due to a two month history of left shoulder pain. Pt notes an insidious onset, it just started aching and hurting. Notes the thing that bothers it the most is reaching into the cupboard for dishes. Anything overhead typically irritates his shoulder. It is best if he just rests it. PT-OP-C Subjective Start: 04/11/22 15:53 Freq: Status: Active Protocol: Document 08/10/22 13:45 DCW (Rec: 08/10/22 14:15 DCW [id number]) OP-PT Subjective Patient Comments Patient Comments Feeling better overall, still having occasional pain, but has noticed clear improvement. PT-OP-E Functional Tests Start: 04/11/22 15:53 Freq: Status: Active Protocol: Document 07/05/22 12:00 DCW (Rec: 07/05/22 12:19 DCW [id number]) Functional Tests Apley's Scratch Test Action 1- Left Lateral opposite shoulder Action 1- Right Posterior opposite shoulder Action 2- Left T3 Action 2- Right T5 Action 3- Left T7 Action 3- Right T3 PT-OP-F Manual Assessment Start: 04/11/22 15:53 Freq: Status: Active Protocol: Document 07/05/22 12:00 DCW (Rec: 07/05/22 12:19 DCW [id number]) Manual Assessments Soft Tissue Assessment Soft Tissue Mobility Assessment Tenderness with palpation 08/03: complaint of pain along left supraspinatus, infraspinatus, and subscapularis. PT-OP-K Range of Motion Start: 04/11/22 15:53 Freq: Status: Active Protocol: Document 07/05/22 12:00 DCW (Rec: 07/05/22 12:19 DCW [id number]) Shoulder Goniometric Range of Motion Shoulder Left Passive Shoulder ROM WFL No Testing Position Sitting Flexion 160 Abduction 160 Left Active Shoulder ROM WFL No Testing Position Sitting Flexion 140 Abduction 116 External Rotation at 0 degrees Abduction 65 Shoulder ROM Limitations Shoulder ROM Limitations Muscle Weakness,Pain PT-OP-L Special Tests Start: 04/11/22 15:53 Freq: Status: Active Protocol: Document 07/05/22 12:00 DCW (Rec: 07/05/22 12:19 DCW [id number]) Special Tests Shoulder Special Tests Painful Arc Test Results Positive L Passive ER Rotator Cuff Test Results Negative Lift-Off Rotator Cuff Test Results Positive L Foster Min Impingement Test Results Positive L Grind Labrum Test Results Negative Drop Arm Rotator Cuff Test Results Negative Belly Press Test Results Positive L Apprehension Test Test Results Positive L PT-OP-M Strength Start: 04/11/22 15:53 Freq: Status: Active Protocol: Document 07/05/22 12:00 DCW (Rec: 07/05/22 12:19 DCW [id number]) Shoulder Strength Shoulder Manual Muscle Testing Left Flexion 3+ Fair+ Abduction (C5) 3 Fair External Rotation 4+ Good+ Internal Rotation 3+ Fair+ Comments Pain with resisted abduction PT-OP-Q Treatments Start: 04/11/22 15:53 Freq: Status: Active Protocol: Document 08/10/22 13:45 DCW (Rec: 08/10/22 14:15 DCW [id number]) Cardio Equipment Upper Body Ergometer (UBE) Duration (Minutes) 6 Seat Position 12 Height 3.5 Therapeutic Exercises Standing Exercises PNF Standing Exercise Name D1/D2 Flexion Side left Resistance 3# Comments c/o pain in end-range D2 Internal rotation Standing Exercise Name PROM IR - Lillie Side left Manual Therapy Treatment Soft Tissue Mobilization R/C Body Location L R/C, main focus on supra/ infraspinatus Mobilization Type Sustained Pressure,Trigger Point Release Intensity/Depth Moderate Upper Trap Body Location L upper trap Mobilization Type Sustained Pressure,Trigger Point Release Intensity/Depth Superficial PT-OP-T Assessment and Plan Start: 04/11/22 15:53 Freq: Status: Active Protocol: Document 08/10/22 13:45 DCW (Rec: 08/10/22 14:15 DCW [id number]) Physical Therapy Assessment Impairments Impairments Functional Activities, Functional Mobility,Pain,ROM, Soft Tissue Mobility,Strength, Tone Goals Two Impairment Significantly limited L shoulder ROM Internal Control Manager 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 flexion and abduction to improve ability to take out and put away dishes overhead from his kitchen cupboard. LTG Duration Met One Impairment Pt does not have an appropriate home exercise program Short Term Goal (STG) Pt to be independent and compliant with an appropriate HEP STG Duration Met Assessment Summary Assessment Pt overall happy with current progress, able to return to normal function with nearly all daily activities, except when reaching up behind his back with his left hand. Pt in agreement for discharge at this time, instructed to return with new referral if he notices worsening of his symptoms. Physical Therapy Plan Frequency and Duration Frequency of Treatment 2x/Week Plan of Care Start Date 07/05/22 Plan of Care End Date 09/05/22 Therapeutic Interventions Therapeutic Interventions Aquatic Therapy,Home Exercise Program,Joint Mobilizations, Manual Therapy,Patient/ Caregiver Education,Self-Care/ Home Management,Soft Tissue Mobilization,Therapeutic Activities,Therapeutic Exercises Modalities Cold Pack/Ice Massage,Electric Stimulation,Hot Packs, Ultrasound Next Visit Focus/Plan Next Note Type Treatment Note Next Visit Plan Shoulder strengthening, ROM, stretching
== END 2022-08-11 12:25 | disposition home or self-care (01) ==
LOC: PHYS 13:45
PROVIDERS: Family Provider Student in an Organized Health Care Education/Training Program; PCP Student in an Organized Health Care Education/Training Program; Referring Provider Student in an Organized Health Care Education/Training Program; Visit Provider Student in an Organized Health Care Education/Training Program
DX: S46.012D Strain of muscle(s) and tendon(s) of the rotator cuff of left shoulder, subsequent encounter (principal); M25.512 Pain in left shoulder; M25.612 Stiffness of left shoulder, not elsewhere classified
CPT/HCPCS: 97110; 97140; 97162

== ENCOUNTER 2022-11-17 08:31 | Day surgery (SDC) | payer BC, SELFPAY ==
[2022-11-17 09:12] VITALS: BP 139/92; PULSE 72; RESP 21; TEMP 36.6; O2SAT 100; BMI 22.9
[2022-11-17] MEDS: LACTATED RINGERS 1,000 ML 42 ML IV (09:21)
--- NOTE | 2022-11-17 09:39 | PM.HP.1 ---
History of Present Illness History of Present Illness Date Patient Seen: 11/17/22 Time Patient Seen: 09:39 Chief complaint: SDC Narrative: Dewayne is a 52-year-old man who is here for colonoscopy. He has never had 1 before. Normal bowel function. [facility] Medical History (Updated 11/17/22 @ 09:40 by Faraz Rohca MD) Psoriasis Surgical History (Updated 11/28/17 @ 05:55 by Conversion Provider) Status post laparoscopic cholecystectomy (10/26/10) Family History Grandfather No problems noted. Grandmother No problems noted. Grandfather No problems noted. Social History household members: spouse Smoking Status: Former smoker alcohol intake: never Meds Home Medications and Allergies Home Medications Medication Instructions Recorded Confirmed Type celecoxib 200 mg capsule (Celebrex) 200 mg PO [facility] #30 caps 02/26/16 11/17/22 History tramadol 50 mg tablet 50 mg PO Q6HP PRN Headache ##0 10/18/16 11/17/22 History adalimumab 40 mg/0.8 mL 40 mg SUBCUT Q14D 08/13/18 11/17/22 History subcutaneous syringe kit (Humira) sildenafil (pulm.hypertension) 20 20 - 100 mg PO BEDTIME PRN sexual 07/16/20 11/17/22 Rx mg tablet activity #30 tabs naratriptan 2.5 mg tablet See Rx Instructions PO .COMPLEX 02/04/22 11/17/22 Rx #18 tabs amitriptyline 10 mg tablet 10 mg PO BEDTIME 02/28/22 11/17/22 History azathioprine 100 mg tablet 100 mg PO DAILY 02/28/22 11/17/22 History sodium sul 1.479 gram-potas ch See Rx Instructions PO PER PKG DIR 10/27/22 Rx 0.188 gram-magnes sul 0.225 gram #24 tabs tablet (Sutab) Allergies Allergy/AdvReac Type Severity Reaction Status Date / Time No Known Drug Allergies Allergy Verified 05/17/22 14:30 Exam Vital Signs (past 8 hours): - 11/17/22 09:12 Temperature 97.8 F Pulse Rate 72 Respiratory Rate 21 Blood Pressure 139/92 H Pulse Oximetry 100 Oxygen Delivery Method Room Air Oxygen Delivery Method Room Air Const General: healthy appearing Assessment & Plan Assessment and plan (1) Colon cancer screening: Status: Acute Plan We reviewed the risks and benefits of colonoscopy for colon cancer screening and he would like to proceed.
--- NOTE | 2022-11-17 10:58 | P.OP.COLON_ITS ---
Operative Date/Time/Diagnoses Date of procedure: 11/17/22 Time of procedure: 10:58 Pre-op diagnosis: Colon cancer screening Post-op diagnosis: same Procedure & Clinicians Study performed: Colonoscopy Same procedure as scheduled: Yes Surgeon: Faraz Rocha Procedure Notes Procedure in detail: Surgeon: Faraz Rocha MD Anesthesia: Gretchen Gunn MD Procedure: The patient was brought to the endoscopy suite, placed in left lateral decubitus position. The patient was connected to monitoring devices. A time-out was performed. Sedation was administered. Once the patient was adequately sedated, a digital rectal exam was performed and was normal. The scope was then inserted and advanced to the cecum where the appendiceal orifice was identified and photographed. The scope was then slowly withdrawn over greater than 6 minutes. The mucosa was thoroughly inspected. No polyps were s een. The scope was retroflexed in the rectum. No abnormalities were seen. The scope was straightened and removed. The patient was awakened and brought to recovery. Scope withdrawal time: 9 minutes Sedation time: 15 minutes EBL: 0 Findings: Normal colon Post-procedure Recommendations: Colonoscopy in 10 years Disposition: PACU
[2022-11-17 11:00] VITALS: BP 112/81; PULSE 92; RESP 16; TEMP 36.2; O2SAT 94
[2022-11-17 11:05] VITALS: BP 117/76; BP 117/79; PULSE 87; PULSE 89; RESP 12; RESP 16; O2SAT 95; O2SAT 97
[2022-11-17 11:10] VITALS: BP 118/84; PULSE 87; RESP 12; O2SAT 99
[2022-11-17 11:15] VITALS: BP 134/98; PULSE 78; RESP 12; O2SAT 99
[2022-11-17 11:24] VITALS: BP 124/85; PULSE 89; RESP 12; TEMP 36.6; O2SAT 100
== END 2022-11-17 11:44 | disposition home or self-care (01) ==
PROVIDERS: Family Provider Student in an Organized Health Care Education/Training Program; PCP Student in an Organized Health Care Education/Training Program; Referring Provider Surgery; Visit Provider Surgery
PROC: 0DJD8ZZ Inspection of Lower Intestinal Tract, Via Natural or Artificial Opening Endoscopic (ICD-10-PCS; CPT 45378; principal; 2022-11-17 09:45)
DX: Z12.11 Encounter for screening for malignant neoplasm of colon (principal)
CPT/HCPCS: 45378; J2704

== ENCOUNTER 2023-09-04 17:08 | Emergency (ER) | payer BC, SELFPAY ==
[2023-09-04 17:11] VITALS: BP 166/101; PULSE 79; RESP 18; TEMP 36.6; O2SAT 100; BMI 24.3
--- NOTE | 2023-09-04 17:45 | PC.NURSE ---
Patient was at his desk at around 1630 and suddenly his vision changed. His right eye became blurry and was trying focus on one thing and his left eye seemed to go in a different, separate direction, and was focusing on far away objects. He got up and tried to move through the room and denied dizzyness, nausea while moving around. His states that his gaze remained conjugated but the patient reported that his vision was disconjugated. He reported that he has hx of migraines that he is being seen for. He takes neurotripton for migraines. He last took the medication for migrain on monday for 2/10 migraine. The pain in his posterior lobe that radiates around the side to the front of his head. He denies head injury, med changes, diet changes.
--- NOTE | 2023-09-04 18:53 | ED_ITS ---
HPI - Eye Problem General Chief complaint: Eye Problems Stated complaint: vision impairment/depth of field issues Time Seen by Provider: 09/04/23 18:03 Source: patient and family Mode of arrival: Ambulatory History of Present Illness HPI Narrative: Patient is a 53-year-old male history of psoriasis on Humira, chronic pain, presents today with visual changes. He reports that he wears contact lenses he has for number of years. He was looking at a computer screen for about an hour not uncommon when he reports that his depth perception out of both eyes went off. It changed if he covered 1 eye versus another it was not consistently 1 eye. He denies any loss of vision. He has no floaters flashing lights or halos. He did not develop a headache although he does have a history of migraines. He did not have any facial droop numbness tingling or weakness. Symptoms lasted for about 40 hours. His recommended that he come to the ED for evaluation. Symptoms have now completely resolved. Related Data Home Medications Medication Instructions Recorded Confirmed celecoxib 200 mg capsule (Celebrex) 200 mg PO [facility] [address] #30 caps 02/26/16 11/17/22 tramadol 50 mg tablet 50 mg PO Q6HP PRN Headache ##0 10/18/16 11/17/22 adalimumab 40 mg/0.8 mL 40 mg SUBCUT Q14D 08/13/18 11/17/22 subcutaneous syringe kit (Humira) amitriptyline 10 mg tablet 10 mg PO BEDTIME 02/28/22 11/17/22 azathioprine 100 mg tablet 100 mg PO DAILY 02/28/22 11/17/22 Previous Rx's Medication Instructions Recorded sildenafil (pulm.hypertension) 20 20 - 100 mg (1 - 5 x 20 mg) PO 07/16/20 mg tablet BEDTIME PRN sexual activity #30 tabs naratriptan 2.5 mg tablet 2.5 mg PO ONCE #18 tabs 03/10/23 Allergies Allergy/AdvReac Type Severity Reaction Status Date / Time No Known Drug Allergies Allergy Verified 05/17/22 14:30 Patient History Medical History Psoriasis Surgical History Status post laparoscopic cholecystectomy (10/26/10) Family History Grandfather No problems noted. Grandmother No problems noted. Grandfather No problems noted. Social History household members: spouse Smoking Status: Former smoker alcohol intake: never Smoking Status: Former smoker alcohol intake frequency: other Substance Use Type: does not use Exam Initial Vital Signs Initial Vital Signs: Vital Signs Temperature 97.9 F 09/04/23 17:11 Pulse Rate 79 09/04/23 17:11 Respiratory Rate 18 09/04/23 17:11 Blood Pressure 166/101 H 09/04/23 17:11 Pulse Oximetry 100 09/04/23 17:11 Oxygen Delivery Method Room Air 09/04/23 17:11 GENERAL: Alert pleasant 53-year-old male and in [no acute] distress. HEENT: Head atraumatic,EOMI, pupils reactive, face symmetric, [moist] mucous membranes Right eye was treated with proparacaine, pressure 16 mmHg extraocular movements intact ultrasound did not show retinal detachment. Left eye with proparacaine pressure 19 mmHg extraocular movements intact ultraso und did not show retinal detachment or vitreous humor detachment CARDIOVASCULAR: Regular rate and rhythm without murmurs, rubs or gallops. RESPIRATORY: Breath sounds equal bilaterally, no wheezes rales or rhonchi. ABDOMEN: Soft, nontender. Normoactive bowel sounds all 4 quadrants. No guarding or rebound. EXTREMITIES: Normal range of motion, no clubbing or edema. Neurovascularly intact NEUROLOGICAL: Alert and oriented x4.Normal gait and speech. Cranial nerves II through XII grossly intact. SKIN: Warm, dry, no laceration, no petechiae, no rashes or lesions. Course Orders Ordered: Discontinued Medications Fluorescein Sodium (Fluorescein 1 Mg Strip) 1 mg EYE-BOTH NOW ONE Stop: 09/04/23 19:02 Proparacaine HCl (Proparacaine 0.5% Ophth Brooke) 1 drops EYE-BOTH NOW ONE Stop: 09/04/23 19:02 Last Admin: 09/04/23 19:17 Dose: 1 drops Documented By: SHYAM Vital Signs Vital signs: Vital Signs - 8 hr 09/04/23 19:35 Pulse Rate 74 Respiratory Rate 16 Blood Pressure 164/100 H Pulse Oximetry 99 Oxygen Delivery Method Room Air MDM - Eye Problem MDM Narrative Medical decision making narrative: Patient 52-year-old male presents with visual deficits. He denies any pain or headache. No loss of vision. He had trouble with depth perception out of both eyes. Pressure was checked with contacts in I but within normal limits. Initial ultrasound of right eye Us possible vitreous humor detachment although it completely resolved after multiple passes. Symptoms are not consistent with vitreous humor detachment or retinal detachment. Patient does have an metallurgical tester who he sees regularly. His symptoms have completely resolved. He has no signs or symptoms consistent with CVA. He has no visual field deficits sounds like a focusing problem with close in far away out of both eyes. Possible ocular migraine although he does not have a headache and has never had ocular migraine previously. Pressures are checked with contacts in but are both within normal limits no concern for acute angle glaucoma Discharge Plan Departure Patient Disposition: Home Clinical Impression: Visual changes Instructions: DI for Visual Field Disturbances Activity Restrictions/Additional Instructions: *You have been diagnosed with visual changes *What to do: At this time I am glad that your vision returned to normal. I strongly recommend that you call your metallurgical tester tomorrow for follow-up this week. *Continue to take medications as directed *Follow up with your primary care provider in 2-3 days or call [phone] *Return to ER if you should have loss of vision, eye pain, increased floaters, facial droop numbness tingling weakness or any new, worsening or concerning symptoms Prescriptions: No Action adalimumab [Humira] 40 mg/0.8 mL syringe kit 40 mg SUBCUT Q14D celecoxib [Celebrex] 200 MG capsule 200 mg PO [facility] [address] Qty: 30 tramadol 50 MG tablet 50 mg PO Q6HP PRN (Reason: Headache) Qty: 0 naratriptan 2.5 mg tablet 2.5 mg PO ONCE Qty: 18 0RF Rx Instructions: @ Onset of Headache // PT DUE FOR APPT. LAST FILL UNTIL SEEN. PLEASE CALL TO SCHEDULE 03/10/23 amitriptyline 10 mg tablet 10 mg PO BEDTIME azathioprine 100 mg tablet 100 mg PO DAILY sildenafil (pulm.hypertension) 20 mg tablet 20 - 100 mg PO BEDTIME PRN (Reason: sexual activity) Qty: 30 11RF Referrals: Riley Isaac MD [Primary Care Provider] - Stand Alone Forms: Patient Portal/API
[2023-09-04] MEDS: PROPARACAINE 0.5% OPHTH SOL 1 DROPS EYE-BOTH (19:17)
[2023-09-04 19:35] VITALS: BP 164/100; PULSE 74; RESP 16; O2SAT 99
== END 2023-09-04 19:36 | disposition home or self-care (01) ==
PROVIDERS: Emergency Provider Emergency Medicine; Family Provider Student in an Organized Health Care Education/Training Program; PCP Student in an Organized Health Care Education/Training Program
DX: H53.8 Other visual disturbances (principal)
CPT/HCPCS: 99282; 99283